=== PATIENT | female | born 1940 | race Caucasian/White ===

== ENCOUNTER 2016-08-29 14:03 | Emergency (ER) | payer OTHER ==
--- NOTE | 2016-08-29 14:42 | PDOC ---
History of Present Illness - General History Source: Patient Exam Limitations: No Limitations - History of Present Illness Initial Comments: 08/29/16 15:15 The patient is a 76 year old female, with significant past medical history of HTN, HLD, TIA (over 6 years ago), who presents today complaining of dizziness starting this morning. The patient explains that she was in the kitchen when there was a sudden onset an anxious, slightly dizzy feeling. She felt as though she was going to collapse. She thought she might have been dehydrated or hungry so she was sure to drink liquids and ate a sandwich after this feeling. She took her blood pressure right after this episode which was 188/90 at the time. She called her son and he took her to the ER. She states that she is still feeling funny. She notes that she drank 2 cups of coffee this morning, but this is not unusual for her. She reports no pain. Denies pain. Denies fever, chills, nausea, vomiting. Denies chest pain, SOB. Denies headache, lightheadedness, changes in vision Denies abdominal pain. Allergies: none reported Surgical Hx: paraesophageal hiatal hernia repair (03/2016), total knee replacement (4 years ago) PCP- Dr. Keven Veronica <Kesha Queen - Last Filed: 08/29/16 15:32> <Hi Burkett - Last Filed: 08/29/16 17:15> - General Chief Complaint: Lightheaded Stated Complaint: WEAKNESS,DIZZINESS Time Seen by Provider: 08/29/16 14:37 Past History <Kesha Queen - Last Filed: 08/29/16 15:32> <Hi Burkett - Last Filed: 08/29/16 17:15> - Past Medical History Allergies/Adverse Reactions: Allergies Allergy/AdvReac Type Severity Reaction Status Date / Time No Known Allergies Allergy Verified 08/29/16 14:50 Home Medications: Ambulatory Orders Atorvastatin Ca [Lipitor] 20 mg PO HS 08/29/16 Lisinopril/Hydrochlorothiazide [Lisinopril-Hctz 20-12.5 mg Tab] 1 each PO DAILY 08/29/16 Review of Systems - Review of Systems Able to Perform ROS?: Yes Comments:: 08/29/16 15:16 GENERAL/CONSTITUTIONAL: No fever or chills. No weakness. HEAD, EYES, EARS, NOSE AND THROAT: No change in vision. No ear pain or discharge. No sore throat. CARDIOVASCULAR: No chest pain or shortness of breath. RESPIRATORY: No cough, wheezing, or hemoptysis. GASTROINTESTINAL: No nausea, vomiting, diarrhea or constipation. GENITOURINARY: No dysuria, frequency, or change in urination. MUSCULOSKELETAL: No joint or muscle swelling or pain. No neck or back pain. SKIN: No rash NEUROLOGIC: +dizziness. No headache, vertigo, loss of consciousness, or change in strength/sensation. ENDOCRINE: No increased thirst. No abnormal weight change. HEMATOLOGIC/LYMPHATIC: No anemia, easy bleeding, or history of blood clots. ALLERGIC/IMMUNOLOGIC: No hives or skin allergy. <Kesha Queen - Last Filed: 08/29/16 15:32> *Physical Exam - Vital Signs Last Vital Signs Temp Pulse Resp BP Pulse Ox 97.9 F 87 17 179/88 99 08/29/16 14:05 08/29/16 14:05 08/29/16 14:05 08/29/16 14:05 08/29/16 14:05 - Physical Exam Comments: 08/29/16 15:16 GENERAL: Awake, alert, and fully oriented, in no acute distress HEAD: No signs of trauma EYES: PERRLA, EOMI, sclera anicteric, conjunctiva clear ENT: Auricles normal inspection, hearing grossly normal, nares patent, oropharynx clear without exudates. Moist mucosa NECK: Normal ROM, supple, no lymphadenopathy, JVD, or masses LUNGS: Breath sounds equal, clear to auscultation bilaterally. No wheezes, and no crackles HEART: Regular rate and rhythm, normal S1 and S2, no murmurs, rubs or gallops ABDOMEN: Soft, nontender, normoactive bowel sounds. No guarding, no rebound. No masses EXTREMITIES: Normal range of motion, no edema. No clubbing or cyanosis. No cords, erythema, or tenderness NEUROLOGICAL: Cranial nerves II through XII grossly intact. Normal speech, normal gait SKIN: Warm, Dry, normal turgor, no rashes or lesions noted. <Kesha Queen - Last Filed: 08/29/16 15:32> ED Treatment Course - LABORATORY CBC & Chemistry Diagram: 08/29/16 14:10 08/29/16 14:10 - RADIOLOGY Radiograph Interpretation: 08/29/16 15:20 Chest Xray As reported by Dr. Vamshi Field Impression: No acute pathology. 08/29/16 15:[address] without contrast As reported by Dr. Panfilo Gray Impression: No evidence of acute intracranial hemorrhage, edema, midline shift, mass effect, or skull fracture. No CT evidence of acute territorial infarction. Supratentorial chronic white matter microangiopathic ischemic changes, gliosis. <Kesha Queen - Last Filed: 08/29/16 15:32> - LABORATORY CBC & Chemistry Diagram: 08/29/16 14:10 08/29/16 14:10 <Hi Burkett - Last Filed: 08/29/16 17:15> *DC/Admit/Observation/Transfer - Attestations Scribe Attestion: 08/29/16 15:17 Documentation prepared by ROMANA Thompson, acting as medical pathology teacher for Hi Burkett DO. <Kesha Queen - Last Filed: 08/29/16 15:32> - Attestations Physician Attestion: 08/29/16 14:37 I, Dr. Hi Burkett, attest that this document has been prepared under my direction and personally reviewed by me in its entirety. I further attest, that it accurately reflects all work, treatment, procedures and medical decision -making performed by me. <Hi Burkett - Last Filed: 08/29/16 17:15> Diagnosis at time of Disposition: Lightheadedness, Anxiety about health - Discharge Dispostion Disposition: HOME Condition at time of disposition: Improved - Referrals Referrals: Keven Veronica MD [Primary Care Provider] - - Patient Instructions Printed Discharge Instructions: DI for Dizziness-Nonvertigo Additional Instructions: Mrs Condon- I am so sorry that I can not figure out exactly what could be happening to you. Every illness has a beginning, a middle and an end, and we may just be too early for us to find a diagnosis. Stay with your family or have your family stay with you tonight. See your doctor tomorrow. Do not hesitate to return to us should the feeling become worse or you develop any new symptoms. [place]- Dr. Hi Burkett
[2016-08-29 15:01] VITALS: BMI 34.3
[2016-08-29 15:15] LABS: BASOPHIL 0.7 % (0-2.0); EOSINOPHIL 1.1 % (0-4.5); MCH 27.3 pg (25.7-33.7); MEAN CELL VOLUME 82.6 fl (80-96); MEAN PLT VOLUME 8.6 fl (7.5-11.1); NEUTROPHILS 69.2 % (42.8-82.8); PLATELET COUNT 167 K/MM3 (134-434); RDW 13.7 % (11.6-15.6); WHITE BLOOD COUNT 6.3 K/mm3 (4.0-10.0)
[2016-08-29 15:32] LABS: INR 0.99 (0.82-1.09); PROTHROMBIN TIME (PATIENT) 10.9 SEC (9.98-11.88)
[2016-08-29 15:37] LABS: ALBUMIN 3.8 g/dl (3.4-5.0); ANION GAP 13 (8-16); BILIRUBIN,TOTAL 0.3 mg/dL (0.2-1.0); CALCIUM 9.3 mg/dL (8.5-10.1); CO2 29 mmol/L (21-32); COCKROFT - GAULT 73.7715; CREATININE 0.9 mg/dL (0.55-1.02); GLUCOSE,RANDOM 172 mg/dL (74-106); SGOT/AST 23 U/L (15-37); SGPT/ALT 40 U/L (12-78); TOT PROT 6.8 g/dl (6.4-8.2)
[2016-08-29 15:40] LABS: ALK PHOS 89 U/L (45-117); TROPONIN I < 0.02 ng/ml (0.00-0.05)
--- NOTE | 2016-08-29 15:49 | EKG ---
Test Reason : Blood Pressure : / mmHG Vent. Rate : 082 BPM Atrial Rate : 082 BPM P-R Int : 174 ms QRS Dur : 092 ms QT Int : 372 ms P-R-T Axes : 029 -16 032 degrees QTc Int : 434 ms NORMAL SINUS RHYTHM NORMAL ECG WHEN COMPARED WITH ECG OF 27-MAR-1999 20:32, NO SIGNIFICANT CHANGE WAS FOUND Confirmed by TONEY TORIBIO MD ([id number]) on 08/29/2016 3:48:56 PM Referred By: Confirmed By:TONEY TORIBIO MD
[2016-08-29 17:45] VITALS: BP 164/84; PULSE 74; TEMP 98.1
== END 2016-08-29 17:45 | disposition home or self-care (01) ==
LOC: JER 14:03
DX: R42 Dizziness and giddiness (principal); F06.4 Anxiety disorder due to known physiological condition; I10 Essential (primary) hypertension; E78.00 Pure hypercholesterolemia, unspecified; Z86.73 Personal history of transient ischemic attack (TIA), and cerebral infarction without residual deficits
CPT/HCPCS: 36415; 70450-TC; 71010-TC; 80053; 82550; 83880; 84484; 85025; 85610; 86850; 86900; 86901; 93005; 93010; 99283-25

== ENCOUNTER 2017-01-13 16:34 | Emergency (ER) | payer OTHER ==
--- NOTE | 2017-01-13 16:39 | PDOC ---
History of Present Illness <Mary Morales - Last Filed: 01/13/17 18:08> - General History Source: Patient, Old Records Exam Limitations: No Limitations - History of Present Illness Initial Comments: 01/13/17 16:52 The patient is a 76 year old female, with significant past medical history of HTN, HLD, TIA (over 6 years ago), who presents to the emergency department with right fifth digit pain and edema today. The patient states that she was walking when she tripped, fell forward and jammed her finger in a doorway. The patient states that she heard something crack and was seeing stars briefly after hitting her hand. She reports difficulty flexing and extending her right fifth digit. She reports using ice at home to alleviate pain with minimal relief. She denies taking any pain medication prior to presenting. <Salinas Rodriguez - Last Filed: 01/13/17 18:17> - General Chief Complaint: Injury Stated Complaint: RIGHT HAND INJURY Time Seen by Provider: 01/13/17 16:35 Past History - Past Medical History HTN: Yes Hypercholesterolemia: Yes - Suicide/Smoking/Psychosocial Hx Smoking History: Never smoked Have you smoked in the past 12 months: No Hx Alcohol Use: No Drug/Substance Use Hx: No Substance Use Type: None <Mary Morales - Last Filed: 01/13/17 18:08> <Salinas Rodriguez - Last Filed: 01/13/17 18:17> - Past Medical History Allergies/Adverse Reactions: Allergies Allergy/AdvReac Type Severity Reaction Status Date / Time No Known Allergies Allergy Verified 01/13/17 16:36 Home Medications: Ambulatory Orders Atorvastatin Ca [Lipitor] 20 mg PO HS 08/29/16 Lisinopril/Hydrochlorothiazide [Lisinopril-Hctz 20-12.5 mg Tab] 1 each PO DAILY 08/29/16 Review of Systems - Review of Systems Able to Perform ROS?: Yes Comments:: 01/13/17 16:52 GENERAL/CONSTITUTIONAL: No fever or chills. No weakness. HEAD, EYES, EARS, NOSE AND THROAT: No change in vision. No ear pain or discharge. No sore throat. MUSCULOSKELETAL: (+) Right fifth digit edema and pain. No neck or back pain. SKIN: No rash <Salinas Rodriguez - Last Filed: 01/13/17 18:17> *Physical Exam - Physical Exam Comments: GENERAL: Awake, alert, and fully oriented, in no acute distress EXTREMITIES: R hand with small ecchymosis to 5th digit, PIP joint, dorsal surface. Finger is held in slight flexion. +Tenderness to 5th metacarpal. Remainder of extremities with normal range of motion, no edema. No clubbing or cyanosis. No cords, erythema, or tenderness NEUROLOGICAL: Cranial nerves II through XII grossly intact. Normal speech, normal gait. Motor and sensation intact. SKIN: Warm, Dry, normal turgor, no rashes or lesions noted. <Mary Morales - Last Filed: 01/13/17 18:08> - Vital Signs Last Vital Signs Temp Pulse Resp BP Pulse Ox 97.6 F 75 18 177/79 100 01/13/17 16:35 01/13/17 16:35 01/13/17 16:35 01/13/17 16:35 01/13/17 16:35 <Salinas Rodriguez - Last Filed: 01/13/17 18:17> Procedures - Splinting Splint Location: Right: Hand Pre-Proc Neuro Vasc Exam: normal Hand-Made Type: orthoglass Splint Type: Yes: Ulnar (ulnar gutter splint) Post-Proc Neuro Vasc Exam: normal Alfredo Bandage: yes, 2", 4" Sling: Yes Complications: No Post splint xray: Yes Good repositioning: Yes Progress: 01/13/17 17:48 Sterile skin prep with chloraprep. Hematoma block given with 2mL of 2% lidocaine , no epi. At this time the patient reported relief of pain and I was able to palpate the fracture without causing her pain. I held the proximal portion of the metacarpal in place while directing the distal fragment dorsally, feeling it move into place. Splinted in place. Patient tolerated well. <Mary Morales - Last Filed: 01/13/17 18:08> Medical Decision Making - Medical Decision Making 01/13/17 16:57 Pt declined pain meds. <Mary Morales - Last Filed: 01/13/17 18:08> - Medical Decision Making 01/13/17 17:[address] Chaves placed [phone]. Awaiting call back. <Salinas Rodriguez - Last Filed: 01/13/17 18:17> *DC/Admit/Observation/Transfer - Discharge Dispostion Admit: No <Mary Morales - Last Filed: 01/13/17 18:08> <Salinas Rodriguez - Last Filed: 01/13/17 18:17> Diagnosis at time of Disposition: Boxers fracture Qualifiers: Encounter type: initial encounter Fracture type: closed Qualified Code(s): S62.339A - Displaced fracture of neck of unspecified metacarpal bone, initial encounter for closed fracture - Discharge Dispostion Disposition: HOME Condition at time of disposition: Stable - Referrals Referrals: Roberto Gómez MD [Staff Physician] - - Patient Instructions Printed Discharge Instructions: DI for Boxer's Fracture, How to Take Care of Your Splint
[2017-01-13 16:57] VITALS: BP 177/79; PULSE 75; TEMP 97.6; BMI 34.3
[2017-01-13] MEDS ORDERED: LIDOCAINE HCL 2% (20ML MULTI-DOSE VIAL) NR ONE (17:30)
== END 2017-01-13 18:13 | disposition home or self-care (01) ==
LOC: FER 16:34
PROC: 0PSPXZZ Reposition Right Metacarpal, External Approach (ICD-10-PCS; principal; 2017-01-13)
DX: S62.306A Unspecified fracture of fifth metacarpal bone, right hand, initial encounter for closed fracture (principal); W18.30XA Fall on same level, unspecified, initial encounter; Y93.89 Activity, other specified; Y92.9 Unspecified place or not applicable; I10 Essential (primary) hypertension; E78.00 Pure hypercholesterolemia, unspecified; Z86.73 Personal history of transient ischemic attack (TIA), and cerebral infarction without residual deficits
CPT/HCPCS: 26605; 73130-TC-RT; 99283-25

== ENCOUNTER 2019-03-14 13:49 | Inpatient (IN) | payer OTHER ==
[2019-03-14] MEDS ORDERED: ONDANSETRON 4 MG/2 ML VIAL ONE (14:19)
[2019-03-14] MEDS ORDERED: ACETAMINOPHEN 1000 MG/100 ML VIAL (NON FORMULARY) IVPB ONE (14:20)
[2019-03-14 14:25] LABS: BASO % 0.7 % (0-2.0); EOS % 0.8 % (0-4.5); HEMATOCRIT 42.7 % (32.4-45.2); HEMOGLOBIN 14.1 GM/dL (10.7-15.3); LYMPH % 24.4 % (8-40); MCH 27.5 pg (25.7-33.7); MEAN CELL VOLUME 83.3 fl (80-96); MEAN PLT VOLUME 8.6 fl (7.5-11.1); MONO % 7.8 % (3.8-10.2); NEUT % 66.3 % (42.8-82.8); PLATELET COUNT 215 K/MM3 (134-434); RBC 5.12 M/mm3 (3.60-5.2); RDW 14.1 % (11.6-15.6); WHITE BLOOD COUNT 6.9 K/mm3 (4.0-10.0)
[2019-03-14] MEDS: SODIUM CHLORIDE 1,000 ML IV SCH (14:32)
[2019-03-14] MEDS ORDERED: ACETAMINOPHEN INJECTION 100 ML IVPB ONE (14:34)
--- NOTE | 2019-03-14 14:35 | PDOC ---
History of Present Illness - General Chief Complaint: Blood Pressure Problem Stated Complaint: HEADACHE/DIFFICULTY SPEAKING Time Seen by Provider: 03/14/19 14:00 - History of Present Illness Initial Comments: Suasn Condon is an 78yo woman with a PMH of HTN, HLD, NIDDM, hypothyroid who presents with acute onset of difficulty speaking, now resolved, hypertension, and headache. She reports that she was in the car with friends around noon, and she started saying the wrong words. She reports that whatever she tried to say, different words came out. She was almost home at that time, so she went home and called her son to bring her to the hospital. Ms Condon reports that the incident saying wrong words lasted about 10-15 minutes, but she has continued to have difficulty coming up with words. She denies any focal weakness, numbness , slurred speech, facial droop, or difficulty walking. She checked her BP at home and noted that it was higher than normal; she says it was in the 160's initially. On arrival to the ED, her HTN had increased to over 200 systolic. She denies any chest pain or difficulty breathing but does note a left-sided headache currently. NIH Stroke Scale - Last Known Well Date/Time & Onset Date Last Known Well: 03/14/19 Time Last Known Well: 12:00 - Initial Evaluation Level of consciousness: Alert Ask patient the month and their age: Answers both correctly Ask patient to open & close eyes; make fist and let go: Obeys both correctly Best gaze (horizontal eye movement): Normal Visual field testing: No visual field loss Facial paresis (Show teeth/raise eyebrows/close eyes tight): Normal symmetrical movement Motor Function: Left Arm: Normal Motor Function: Right Arm: Normal (extends arm 90 (or 45) degrees for 10 seconds without drift Motor Function: Left Leg: Normal (extends leg 30 degrees for 5 seconds without drift) Motor Function: Right Leg: Normal (extends leg 30 degrees for 5 seconds without drift) Limb Ataxia: No ataxia Sensory(Use pinprick test arms,legs,trunk,face/side to side): Normal Best language (Describe picture, name items, read sentences): No Aphasia Dysarthria (read several words): Normal articulation Extinction and Inattention: No abnormality - Total Score NIH Stroke Scale Score: 0 Past History - Past Medical History Allergies/Adverse Reactions: Allergies Allergy/AdvReac Type Severity Reaction Status Date / Time No Known Allergies Allergy Verified 03/14/19 13:55 Home Medications: Ambulatory Orders Atorvastatin Ca [Lipitor] 20 mg PO HS 08/29/16 Aspirin [ASA -] 325 mg PO DAILY 03/14/19 Levothyroxine [Synthroid -] 25 mcg PO DAILY 03/14/19 Lisinopril/Hydrochlorothiazide [Lisinopril-Hctz 20-25 mg Tab] 1 each PO DAILY Multivitamins [Tab-A-Vit -] 1 tab PO DAILY 03/14/19 [place]-3S/Dha/Epa/Fish Oil [Fish Oil 1,200 mg Softgel] 1 each PO DAILY 03/14/19 metFORMIN HCL [Metformin HCl ER] 750 mg PO DAILY 03/14/19 COPD: No Diabetes: Yes HTN: Yes Hypercholesterolemia: Yes - Surgical History Abdominal Surgery: Yes (HIATAL HERNIA REPAIR IN 2014) - Psycho Social/Smoking Cessation Hx Smoking History: Never smoked Have you smoked in the past 12 months: No Hx Alcohol Use: No Drug/Substance Use Hx: No Substance Use Type: None Review of Systems - Review of Systems Comments:: General: No fevers, no chills, no weight or appetite change, no malaise HEENT: No changes in vision, no changes in hearing, no congestion, no sore throat CV: No chest pain, no palpitations, no LE edema Pulm: No SOB, no cough, no wheezing GI: No nausea or vomiting, no change in bowel habits, no melena : No frequency, no urgency, no dysuria Musc: No back pain, no joint swelling, no recent injury Skin: No rash, no lesions, no erythema Endo: No excessive thirst, no heat/cold intolerance Heme: No unusual bruising or bleeding, no swollen glands Neuro: No syncope, no numbness/tingling, no focal weakness. See HPI Vasc: No claudication Psych: No recent change in mood, no SI or HI *Physical Exam - Vital Signs Last Vital Signs Temp Pulse Resp BP Pulse Ox 98 F 90 18 202/91 H 97 03/14/19 13:52 03/14/19 13:52 03/14/19 13:52 03/14/19 13:52 03/14/19 13:52 - Physical Exam General: Comfortable, no acute distress HEENT: Atraumatic, PERRL, EOMI, MMM, voice normal, normal neck ROM Cards: RRR, no murmur appreciated Pulm: Comfortable on room air, clear to auscultation bilaterally Abd: Soft, nontender, nondistended Ext: Atraumatic. No LE edema. ROM intact. WWP Skin: Normal color, no rashes or lesions Neuro: A&Ox3, CN grossly intact, normal speech, motor/sensory grossly intact and symmetric. No focal deficits, no ataxia. Psych: Mood appropriate to situation ED Treatment Course - LABORATORY CBC & Chemistry Diagram: 03/14/19 14:05 03/14/19 14:05 - ADDITIONAL ORDERS Additional order review: Laboratory Results 03/14/19 14:27 POC Glucometer 134 03/14/19 03/14/19 14:27 14:05 RBC 5.12 MCV 83.3 MCHC 33.0 RDW 14.1 MPV 8.6 Neutrophils % 66.3 Lymphocytes % 24.4 Monocytes % 7.8 Eosinophils % 0.8 Basophils % 0.7 POC Glucometer 134 Medical Decision Making - Medical Decision Making 03/14/19 14:32 Susan Condon is an 78yo woman with a PMH of HTN, HLD, NIDDM, hypothyroid who presents with acute onset of difficulty speaking, now resolved, hypertension, and headache. - Ddx includes TIA, CVA (ischemic v hemorrhagic) vs hypertensive emergency - Code jaramillo called - Labs pending - CT completed. No acute bleed seen - Became nauseated while in CT. 4mg IV zofran given 03/14/19 15:14 - Spoke to Dr Lazo. Recommending carotid duplex, cardiac monitoring to evaluate for arrhythmia - Labs without concerning abnormalities - Will admit for additional evaluation 03/14/19 15:22 - Updated pt, who agrees with the plan. - Pt reports that she had a very similar episode over 10 years ago, was told she might have had a TIA - [facility] sent for admission Discussed with Dr Angie Sandra PGY2 Discharge - Discharge Information Problems reviewed: Yes Clinical Impression/Diagnosis: TIA (transient ischemic attack) Condition: Stable - Admission Yes - Follow up/Referral - Patient Discharge Instructions - Post Discharge Activity
[2019-03-14 14:58] LABS: INR 0.96 (0.83-1.09); PROTHROMBIN TIME (PATIENT) 11.3 SEC (9.7-13.0)
--- NOTE | 2019-03-14 14:58 | PDOC ---
Attending Attestation - Resident Resident Name: Elizabeth Sandra - ED Attending Attestation I have performed the following: I have examined & evaluated the patient, The case was reviewed & discussed with the resident, I agree w/resident's findings & plan, Exceptions are as noted - HPI HPI: 03/14/19 14:52 78 F with DM, HTN, HLD, hypothyroid, ?TIA, presents to ED with acute onset slurred speech and word finding difficulty. Pt states that she was talking on the phone at approximately 12:30 when she started having difficulty speaking. She states that she was saying words that didn't make sense. Pt denies any weakness/numbness in any extremity. States that the word finding difficulty lasted approx 1 hour before resolving on its own. Pt now complains of mild headache and nausea. Denies CP/SOB. Pt's daugher at bedside states pt has returned to her baseline mentation. - Physicial Exam PE: 03/14/19 14:58 "GENERAL: Awake, alert, and fully oriented, in no acute distress. HEAD: No signs of trauma EYES: PERRLA, EOMI, sclera anicteric, conjunctiva clear ENT: Auricles normal inspection, hearing grossly normal, nares patent, oropharynx clear without exudates. Moist mucosa NECK: Nontender, no stepoffs, Normal ROM, supple, no lymphadenopathy, JVD, or masses LUNGS: Breath sounds equal, clear to auscultation bilaterally. No wheezes, and no crackles HEART: Regular rate and rhythm, normal S1 and S2, no murmurs, rubs or gallops ABDOMEN: Soft, nontender, normoactive bowel sounds. No guarding, no rebound. No masses EXTREMITIES: Normal range of motion, no edema. No clubbing or cyanosis. No cords, erythema, or tenderness NEUROLOGICAL: Cranial nerves II through XII intact. 5/5 strength and sensation in all extremities, Normal speech, normal gait, normal cerebellar function SKIN: Warm, Dry, normal turgor, no rashes or lesions noted. - Critical Care Time Total Critical Care Time: 60 Critical Care Statement: The care of this patient involved high complexity decision making to prevent further life threatening deterioration of the patient 's condition and/or to evaluate & treat vital organ system(s) failure or risk of failure. - Medical Decision Making 03/14/19 15:00 78 F with transient episode of word finding difficulty. Now back to baseline. Possible TIA. NIHSS zero. - Labs - CT head - Neuro c/s NIH Stroke Scale - Last Known Well Date/Time & Onset Date Last Known Well: 03/14/19 Time Last Known Well: 12:30 - Initial Evaluation Level of consciousness: Alert Ask patient the month and their age: Answers both correctly Ask patient to open & close eyes; make fist and let go: Obeys both correctly Best gaze (horizontal eye movement): Normal Visual field testing: No visual field loss Facial paresis (Show teeth/raise eyebrows/close eyes tight): Normal symmetrical movement Motor Function: Left Arm: Normal Motor Function: Right Arm: Normal (extends arm 90 (or 45) degrees for 10 seconds without drift Motor Function: Left Leg: Normal (extends leg 30 degrees for 5 seconds without drift) Motor Function: Right Leg: Normal (extends leg 30 degrees for 5 seconds without drift) Limb Ataxia: No ataxia Sensory(Use pinprick test arms,legs,trunk,face/side to side): Normal Best language (Describe picture, name items, read sentences): No Aphasia Dysarthria (read several words): Normal articulation Extinction and Inattention: No abnormality - Total Score NIH Stroke Scale Score: 0
[2019-03-14 15:01] LABS: ACTIVATED PTT 34.8 SECONDS (25.2-36.5)
[2019-03-14 15:03] LABS: ALK PHOS 93 U/L (45-117); ANION GAP 12 MMOL/L (8-16); BILIRUBIN,TOTAL 0.5 mg/dL (0.2-1); BLOOD UREA NITROGEN 14.6 mg/dL (7-18); CALCIUM 9.8 mg/dL (8.5-10.1); CHLORIDE 99 mmol/L (98-107); CO2 26 mmol/L (21-32); CREATININE 0.8 mg/dL (0.55-1.3); GLUCOSE,RANDOM 107 mg/dL (74-106); HDL CHOLESTEROL 46 mg/dL (40-60); LDL CHOLESTEROL (ONLY SJRH) 85 mg/dL (5-100); POTASSIUM 4.2 mmol/L (3.5-5.1); SGOT/AST 30 U/L (15-37); SGPT/ALT 58 U/L (13-61); SODIUM 136 mmol/L (136-145); TOT PROT 7.2 g/dl (6.4-8.2); TRIGLYCERIDES 143 mg/dL (0-150)
--- NOTE | 2019-03-14 17:24 | HP ---
CHIEF COMPLAINT: change of speech, mild headache PCP: Dr. Arrington HISTORY OF PRESENT ILLNESS: Patient is an 78 year old female with a significant past medical history of hypertension, hyperlipidemia, hypothyroidism and diabetes. Patient presented to the ED after she experienced an acute onset of difficulty speaking, hypertension and headache. Symptoms have since resolved. Patient report that today around noon, was in car with some friends and she noted that she was trying to speak but had an acute onset of difficult speaking. She reports that whatever she tried to say, the words came out differently and she felt as though her speech may have been slurred, but does not remember. She called her family and reported this incident and was brought in to [facility]. In the ED, stroke protocol initiated and head CT negative. However BP was elevated 200/90s on admission She denies any focal weakness, numbness, facial droop, or difficulty walking. She checked her BP at home and noted that it was higher than normal. States it was in the 160's initially, but elevated on admission. She denies any chest pain or difficulty breathing but does note a left-sided headache currently that is mild. ER course was notable for: (1) bp elevation 200/60 (2) head ct , no acute bleed (3) Recent Travel: none PAST MEDICAL HISTORY: PAST SURGICAL HISTORY: Social History: Smoking: n/a Alcohol: n/a Drugs: n/a Allergies No Known Allergies Allergy (Verified 03/14/19 13:55) HOME MEDICATIONS: Home Medications Medication Instructions Recorded Atorvastatin Ca [Lipitor] 20 mg PO HS 08/29/16 Aspirin [ASA -] 325 mg PO DAILY 03/14/19 Levothyroxine [Synthroid -] 25 mcg PO DAILY 03/14/19 Lisinopril/Hydrochlorothiazide 1 each PO DAILY 03/14/19 [Lisinopril-Hctz 20-25 mg Tab] Multivitamins [Tab-A-Vit -] 1 tab PO DAILY 03/14/19 [place]-3S/Dha/Epa/Fish Oil [Fish 1 each PO DAILY 03/14/19 Oil 1,200 mg Softgel] metFORMIN HCL [Metformin HCl ER] 750 mg PO DAILY 03/14/19 PHYSICAL EXAMINATION Vital Signs - 24 hr 03/14/19 03/14/19 03/14/19 13:52 13:55 14:15 Temperature 98 F Pulse Rate 90 78 Pulse Rate [ Apical] Respiratory 18 Rate Blood Pressure 202/91 H Blood Pressure [Right Arm] O2 Sat by Pulse 97 97 99 Oximetry (%) 03/14/19 03/14/19 03/14/19 14:25 14:57 17:00 Temperature 97.9 F Pulse Rate Pulse Rate [ 68 74 Apical] Respiratory 18 22 H Rate Blood Pressure Blood Pressure 166/90 131/67 125/59 L [Right Arm] O2 Sat by Pulse 97 96 Oximetry (%) GENERAL: Awake, alert, and fully oriented, in no acute distress. HEAD: Normal with no signs of trauma. EYES: Pupils equal, round and reactive to light, extraocular movements intact, sclera anicteric, conjunctiva clear. No lid lag. EARS, NOSE, THROAT: Ears normal, nares patent, oropharynx clear without exudates. Moist mucous membranes. NECK: Normal range of motion, supple without lymphadenopathy, JVD, or masses. LUNGS: Breath sounds equal, clear to auscultation bilaterally. No wheezes, and no crackles. No accessory muscle use. HEART: Regular rate and rhythm, normal S1 and S2 without murmur, rub or gallop. ABDOMEN: Soft, nontender, not distended, normoactive bowel sounds, no guarding, no rebound, no masses. No hepatomegaly or splenomegaly. MUSCULOSKELETAL: No CVA tenderness. UPPER EXTREMITIES: No peripheral edema. LOWER EXTREMITIES: No peripheral edema. NEUROLOGICAL: Normal speech. Normal gait. PSYCHIATRIC: Cooperative. Good eye contact. Appropriate mood and affect. SKIN: Warm, dry, normal turgor, no rashes or lesions noted, normal capillary refill. Laboratory Results - last 24 hr 03/14/19 03/14/19 03/14/19 14:05 14:05 14:05 WBC 6.9 RBC 5.12 Hgb 14.1 Hct 42.7 MCV 83.3 MCH 27.5 MCHC 33.0 RDW 14.1 Plt Count 215 D MPV 8.6 Absolute Neuts (auto) 4.6 Neutrophils % 66.3 Lymphocytes % 24.4 Monocytes % 7.8 Eosinophils % 0.8 Basophils % 0.7 Nucleated RBC % 0 PT with INR 11.30 INR 0.96 PTT (Actin FS) 34.8 Sodium 136 Potassium 4.2 Chloride 99 Carbon Dioxide 26 Anion Gap 12 BUN 14.6 Creatinine 0.8 Est GFR (CKD-EPI)AfAm 80.70 Est GFR (CKD-EPI)NonAf 69.63 POC Glucometer Random Glucose 107 H Calcium 9.8 Total Bilirubin 0.5 AST 30 ALT 58 Alkaline Phosphatase 93 Creatine Kinase 110 Troponin I < 0.02 Total Protein 7.2 Albumin 4.0 Triglycerides 143 Cholesterol Total LDL Cholesterol 85 HDL Cholesterol 46 03/14/19 03/14/19 14:05 14:27 WBC RBC Hgb Hct MCV MCH MCHC RDW Plt Count MPV Absolute Neuts (auto) Neutrophils % Lymphocytes % Monocytes % Eosinophils % Basophils % Nucleated RBC % PT with INR INR PTT (Actin FS) Sodium Potassium Chloride Carbon Dioxide Anion Gap BUN Creatinine Est GFR (CKD-EPI)AfAm Est GFR (CKD-EPI)NonAf POC Glucometer 134 Random Glucose Calcium Total Bilirubin AST ALT Alkaline Phosphatase Creatine Kinase Troponin I Total Protein Albumin Triglycerides Cholesterol 162 Total LDL Cholesterol HDL Cholesterol ASSESSMENT/PLAN: Family Medical History Family History: Denies Problem List - Problem (1) TIA (transient ischemic attack) Assessment/Plan: presents to the the ED with concerning symptoms of TIA per patient had a previous TIA and put on full dose aspirin head ct negative no further headaches, speech clear, neuro exam negative, no visual defects plan: neurology consulted by the ED monitor on tele carotid doppler hmga1c lipid panel Code(s): G45.9 - TRANSIENT CEREBRAL ISCHEMIC ATTACK, UNSPECIFIED (2) Headache Assessment/Plan: head ct negative Code(s): R51 - HEADACHE (3) Hyperlipidemia Assessment/Plan: lipid panel in a.m. Code(s): E78.5 - HYPERLIPIDEMIA, UNSPECIFIED (4) Diabetes Assessment/Plan: on metformin 750mg daily hmga1c in a.m. monitor bgms Code(s): E11.9 - TYPE 2 DIABETES MELLITUS WITHOUT COMPLICATIONS (5) Hypertension Assessment/Plan: continue home meds, lisonopril/hctc bp elevated on admission monitor bp q4 Code(s): I10 - ESSENTIAL (PRIMARY) HYPERTENSION Visit type - Emergency Visit Emergency Visit: Yes ED Registration Date: 03/14/19 Care time: The patient presented to the Emergency Department on the above date and was hospitalized for further evaluation of their emergent condition. - New Patient This patient is new to me today: Yes Date on this admission: 03/14/19 - Critical Care Critical Care patient: No
[2019-03-14 20:00] LABS: EPI CELLS 3.9 /HPF (0-5/HPF); HYALINE CASTS 3 /lpf (0-8); PH,URINE 6.5 (5.0-8.0); URINE APPEARANCE CLEAR; URINE BACTERIA 102.4 /hpf (NEGATIVE); URINE BILIRUBIN NEGATIVE (NEGATIVE); URINE COLOR YELLOW; URINE GLUCOSE (UA) NEGATIVE (NEGATIVE); URINE KETONE 2+ (NEGATIVE); URINE LEUK ESTERASE TRACE (NEGATIVE); URINE NITRITE NEGATIVE (NEGATIVE); URINE PROTEIN NEGATIVE (NEGATIVE); URINE RBC 2 /hpf (0-4); URINE UROBILINOGEN 0.2 mg/dL (0.2-1.0); URINE WBC 4 /hpf (0-5)
[2019-03-14] MEDS ORDERED: ACETAMINOPHEN 325 MG TABLET (FP) PO PRN (21:21)
[2019-03-14] MEDS: ATORVASTATIN CA 20 MG TABLET (FP) PO SCH (22:34)
[2019-03-15] MEDS ORDERED: LEVOTHYROXINE NA 25 MCG TABLET (FP) PO SCH (07:00)
[2019-03-15 08:06] LABS: BASO % 0.7 % (0-2.0); EOS % 1.6 % (0-4.5); HEMATOCRIT 40.7 % (32.4-45.2); HEMOGLOBIN 13.6 GM/dL (10.7-15.3); LYMPH % 34.6 % (8-40); MCH 27.7 pg (25.7-33.7); MCHC 33.4 g/dl (32.0-36.0); MEAN CELL VOLUME 82.9 fl (80-96); MEAN PLT VOLUME 8.9 fl (7.5-11.1); MONO % 10.5 % (3.8-10.2); NEUT % 52.6 % (42.8-82.8); PLATELET COUNT 215 K/MM3 (134-434); RBC 4.91 M/mm3 (3.60-5.2); RDW 14.1 % (11.6-15.6); WHITE BLOOD COUNT 6.3 K/mm3 (4.0-10.0)
[2019-03-15 08:28] LABS: ALBUMIN 3.7 g/dl (3.4-5.0); BILIRUBIN,TOTAL 0.4 mg/dL (0.2-1); BLOOD UREA NITROGEN 12.3 mg/dL (7-18); CALCIUM 9.4 mg/dL (8.5-10.1); CREATININE 0.8 mg/dL (0.55-1.3); POTASSIUM 4.4 mmol/L (3.5-5.1); TOT PROT 6.5 g/dl (6.4-8.2)
[2019-03-15] MEDS ORDERED: PATIENT'S OWN MEDICATION (NON-FORMULARY) (Lisinopril/Hydrochlorothiazide [Lisinopril-Hctz PO SCH (10:00)
[2019-03-15] MEDS ORDERED: HYDROCHLOROTHIAZIDE 25 MG TABLET (FP) PO SCH (10:00)
[2019-03-15] MEDS ORDERED: LISINOPRIL 20 MG TABLET (FP) PO SCH (10:00)
[2019-03-15] MEDS ORDERED: ASPIRIN 325 MG TABLET PO SCH (10:00)
--- NOTE | 2019-03-15 14:34 | PN ---
Progress Note, Physician Chief Complaint: pt denies any c/o , and no more symptoms of the slurring of speech , no weakness , - Current Medication List Current Medications: Active Medications Acetaminophen (Tylenol -) 650 mg PO Q6H PRN PRN Reason: PAIN LEVEL 6-10 Aspirin (Asa -) 325 mg PO DAILY [facility] Last Admin: 03/15/19 09:13 Dose: 325 mg Atorvastatin Calcium (Lipitor -) 20 mg PO HS [facility] Last Admin: 03/14/19 22:34 Dose: 20 mg Hydrochlorothiazide (Hctz -) 25 mg PO DAILY [facility] Last Admin: 03/15/19 09:13 Dose: 25 mg Sodium Chloride (Normal Saline -) 1,000 mls @ 42 mls/hr IV ASDIR [facility] Last Admin: 03/14/19 14:32 Dose: 42 mls/hr Levothyroxine Sodium (Synthroid -) 25 mcg PO AM [facility] Last Admin: 03/15/19 06:24 Dose: 25 mcg Lisinopril (Prinivil) 20 mg PO DAILY [facility] Last Admin: 03/15/19 09:13 Dose: 20 mg Metformin HCl (Glucophage Xr -) 750 mg PO AM [facility] Last Admin: 03/15/19 08:39 Dose: 750 mg - Objective Vital Signs: Vital Signs Temperature 98.0 F 03/15/19 14:23 Pulse Rate 80 03/15/19 14:23 Respiratory Rate 18 03/15/19 14:23 Blood Pressure 118/54 L 03/15/19 14:23 O2 Sat by Pulse Oximetry (%) 95 03/15/19 08:50 Constitutional: Yes: Well Nourished, Calm Eyes: Yes: Conjunctiva Clear, EOM Intact HENT: Yes: Normocephalic Neck: Yes: Supple, Trachea Midline Cardiovascular: Yes: Regular Rate and Rhythm Respiratory: Yes: Regular, CTA Bilaterally Gastrointestinal: Yes: Normal Bowel Sounds Edema: No Neurological: Yes: Alert, Oriented ...Motor Strength: WNL Psychiatric: Yes: WNL Labs: CBC, BMP 03/15/19 06:35 03/15/19 07:30 INR, PTT INR 0.96 (0.83-1.09) 03/14/19 14:05 Impression/Plan Impression/Plan: blem (1) TIA (transient ischemic attack) Assessment/Plan: symptoms of the slurring resolved, and also no new s/o weakness, is asymptomatic , neurology consulted by the ED, awaiting, and will call again, monitor on tele carotid doppler is negative, hmga1c lipid panel Code(s): G45.9 - TRANSIENT CEREBRAL ISCHEMIC ATTACK, UNSPECIFIED (2) Headache Assessment/Plan: head ct negative Code(s): R51 - HEADACHE (3) Hyperlipidemia Assessment/Plan: normal, Code(s): E78.5 - HYPERLIPIDEMIA, UNSPECIFIED (4) Diabetes Assessment/Plan: on metformin 750mg daily hmga1c 6.3, monitor bgms Code(s): E11.9 - TYPE 2 DIABETES MELLITUS WITHOUT COMPLICATIONS (5) Hypertension Assessment/Plan: continue home meds, lisonopril/hctc controlled, Code(s): I10 - ESSENTIAL (PRIMARY) HYPERTENSION Visit type - Emergency Visit Emergency Visit: No - New Patient This patient is new to me today: Yes Date on this admission: 03/15/19 - Critical Care Critical Care patient: No - Discharge Referral Referred to [facility] Med [facility].C.: No
[2019-03-15] MEDS: SODIUM CHLORIDE 1,000 ML IV SCH (16:46)
[2019-03-15] MEDS ORDERED: METOCLOPRAMIDE HCL INJECTION 10 MG/2 ML VIAL IVPUSH STA (16:54)
[2019-03-15] MEDS ORDERED: MAG HYDROX/AL HYDROX/SIMETH 30 ML UNIT-DOSE CUP PO PRN (16:55)
[2019-03-15] MEDS ORDERED: MAGNESIUM HYDROX 2400MG/30ML ORAL SUSPENSION 30 ML CUP PO ONE (16:55)
[2019-03-15] MEDS ORDERED: PANTOPRAZOLE SODIUM 40 MG VIAL IVPUSH ONE (17:05)
--- NOTE | 2019-03-15 18:24 | CONSULT ---
Consult - text type - Consultation Consultation Note: NEUROLOGY CONSULTATION is greatly appreciated: Events reviewed and discussed with Dr. Sandra in the ER and RN. patient examined with her son and daughter at the bedside. This 6o yo RH woman lives alone. Independent in all ADL's. Drives without difficulty PMH sig for HTN, Chol, hypothyroidism and DM. Maintained on: Atorvastatin; Aspirin 325; Levothyroxine; Lisinopril/ Hydrochlorothiazide; and metFORMIN HCL Admitted yesterday after 10-15 min episode of word finding difficulty without comprehension deficit or alteration in level of consciousness. No recurrence but daughter and patient recall a similar episode aboput 10-15 years ago and that evaluation for "TIA" was "negative. Ambulated to BR today without difficult. Now c/o LLQ pain and nausea wioth dry heaves since lunch. No c/o vertigo/ dizziness CT of head (reviewed): Normal Carotid duplex doppler (reviewed): Normal SHANNAN: No bruits. Cor regular (80's). Abd soft. NEURO: MS/speech: normal CN II-XII: normal without nystagmus. Motor: No drift or tremor. Normal strength, bulk, tone and reflexes. Toes downgoing Coord: No FTN Dystaxia Sensory: Normal vib both feet. Gait: Deferred due to GI complaints. IMP: Normal neurological exam R/O left cerebral TIA Suggest: Continue telemetry Continue ASA 324mg for now Cardiology consultation. Possible wechocardiogram: R/O cardiogenic source of emboli. GI consult and eval if nausea persists (Unlikely on a neurological basis). Mobilize out of bed to chair (or DVT prophylactic protocol). Thank you very much, Dick Lazo MD
[2019-03-15] MEDS ORDERED: DEXTROSE 5%-0.45% SALINE 1,000 ML IV SCH (19:30)
[2019-03-15] MEDS ORDERED: ONDANSETRON 4 MG/2 ML VIAL IVPUSH ONE ×2 (20:46→23:43)
--- NOTE | 2019-03-15 20:53 | HOSP ---
Subjective - Review of Symptoms Events since last encounter: Hospitalist Encounter Notified by the RN that the patient had a BM with anthony blood then melena. Then had a second large episode of melena. Was asked to assess. Arrived to bedside, patient is alert, awake and oriented, pale, in moderate distress. PE performed see EMR Call placed to Dr Jimenes, discussed case, recommends- CTA abdomen/pelvis, Protonix Drip Discussed case with Dr. Ely Gatica, ICU resident, for probable transfer to ICU for Acute GI Bleed Assessment: Patient is an 78 year old female with a significant past medical history of hypertension, hyperlipidemia, hypothyroidism and diabetes. Patient presented to the ED after she experienced an acute onset of difficulty speaking, hypertension and headache. Symptoms have since resolved. Admitted to Telemetry for TIA Plan: Stat-CBC, CMP, INR, PTT, Type & Screen, PRBCs Stat- CTA abd/pelvis Protonix Drip Transfer to ICU Gastrointestinal: Yes: Abdominal Pain, Melena Physical Examination Vital Signs: Vital Signs Temperature 97.2 F L 03/15/19 17:00 Pulse Rate 62 03/15/19 17:00 Respiratory Rate 20 03/15/19 17:00 Blood Pressure 167/79 03/15/19 17:00 O2 Sat by Pulse Oximetry (%) 95 03/15/19 08:50 Constitutional: Yes: Moderate Distress, Obese, Pallor Eyes: Yes: Conjunctiva Clear, EOM Intact, PERRL HENT: Yes: WNL, Atraumatic, Normocephalic Neck: Yes: WNL, Supple, Trachea Midline Cardiovascular: Yes: Regular Rate and Rhythm, S1, S2 Respiratory: Yes: WNL, Regular, CTA Bilaterally Gastrointestinal: Yes: Abdomen, Obese, Hyperactive Bowel Sounds, Melena, Rectal Bleeding, Tenderness, Tenderness, Epigastrium ...Rectal Exam: Yes: Guaiac Positive, Sphincter Tone Normal Peripheral Pulses WNL: Yes Neurological: Yes: WNL, Alert, Oriented, Cran Nerves II-XII Intact ...Motor Strength: WNL Psychiatric: Yes: WNL, Alert, Oriented Labs: CBC, BMP 03/15/19 06:35 03/15/19 07:30 Hospitalist Encounter Outcome: WBC 15.8, H/H 14.1/43.7, Neutrophils 89.9, BUN 21.6, Glu 173 CTA report- no AAA, no SBO, moderate mucousal thickening and adjacent edema of the colon mid ascending colon the distal descending colon compatible with Colitis Assessment: Colitis Plan: Metronidazole, Ceftriaxone Critical Care Total Critical Care Time (in minutes): 45 Critical Care Statement: The care of this patient involved high complexity decision making to prevent further life threatening deterioration of the patient 's condition and/or to evaluate & treat vital organ system(s) failure or risk of failure.
[2019-03-15] MEDS ORDERED: PANTOPRAZOLE SODIUM 80 MG in SODIUM CHLORIDE 100 ML IVPB SCH (21:00)
--- NOTE | 2019-03-15 21:40 | CONSULT ---
Consultation: REQUESTING PROVIDER: CONSULT REQUEST: We have been asked to medically evaluate this patient for ICU admission due to acute GI bleed. HISTORY OF PRESENT ILLNESS: 78 y/o/f with a significant past medical history of hypertension, hyperlipidemia , hypothyroidism and diabetes. Patient presented to the ED after she experienced an acute onset of difficulty speaking, hypertension and headache. Patient was worked up for TIA and symptoms have since resolved. Patient was cleared by Neurology today with a normal neurological exam. Earlier today patient started to complain of diffused abd tenderness and nausea. She was given zofran, reglan, and protonix with improvement. Patient did not have vomiting. She had a normal rectal exam without anthony blood earlier today. Later in the day patient had a BM with melena and then another BM with anthony blood. Patient had a third BM with anthony blood during interview with ICU team. Repeat CBC was ordered, hgb did not drop. Patient is hemodynamically stable, however admitted to ICU for closer monitoring due to multiple episodes of bloody bowel movements today. Patient has a history of a para-esophageal hernia repair 3 years ago. Her last colonoscopy was 10+ years ago. She denies any hx of colon cancer but states she has some family hx of colon cancer. Patient complains of dizziness, abd pain, nausea, chills. She denies chest pain, SOB, headache. REVIEW OF SYSTEMS: As per HPI PHYSICAL EXAMINATION Vital Signs - 24 hr 03/15/19 03/15/19 03/15/19 01:03 02:42 05:00 Temperature 98.4 F 98.1 F Pulse Rate 99 H 64 Respiratory 18 18 Rate Blood Pressure 130/64 114/64 O2 Sat by Pulse 95 Oximetry (%) 03/15/19 03/15/19 03/15/19 08:50 14:23 16:25 Temperature 98.1 F 98.0 F 97.7 F Pulse Rate 72 80 66 Respiratory 18 18 21 H Rate Blood Pressure 134/64 118/54 L 126/57 L O2 Sat by Pulse 95 Oximetry (%) 03/15/19 17:00 Temperature 97.2 F L Pulse Rate 62 Respiratory 20 Rate Blood Pressure 167/79 O2 Sat by Pulse Oximetry (%) GENERAL: Pale, Awake, alert, and fully oriented, in no acute distress. HEAD: Normal with no signs of trauma. EYES: PERRL, EOMI EARS, NOSE, THROAT: Moist mucous membranes NECK: trachea midline, supple LUNGS: Breath sounds equal, clear to auscultation bilaterally. No wheezes, and no crackles. No accessory muscle use. HEART: Regular rate and rhythm, normal S1 and S2 without murmur, rub or gallop. ABDOMEN: diffuse abd tenderness to palpation EXTREMITIES: 2+ pulses, warm, well-perfused. No calf tenderness. No peripheral edema. RECTAL: anthony blood noted in diaper, no hemorrhoids, normal rectal tone NEUROLOGICAL: Cranial nerves II-XII intact. Normal speech. gait not observed PSYCHIATRIC: Good eye contact. Appropriate mood and affect. SKIN: Warm, dry Laboratory Results - last 24 hr 03/14/19 03/14/19 03/14/19 21:00 21:00 22:33 WBC RBC Hgb Hct MCV MCH MCHC RDW Plt Count MPV Absolute Neuts (auto) Neutrophils % Lymphocytes % Monocytes % Eosinophils % Basophils % Nucleated RBC % Sodium Potassium Chloride Carbon Dioxide Anion Gap BUN Creatinine Est GFR (CKD-EPI)AfAm Est GFR (CKD-EPI)NonAf POC Glucometer 157 Random Glucose Hemoglobin A1c % Calcium Total Bilirubin AST ALT Alkaline Phosphatase Troponin I < 0.02 Total Protein Albumin Triglycerides Cholesterol Total LDL Cholesterol HDL Cholesterol TSH Thyroxine (T4) Blood Type A POSITIVE Antibody Screen Negative 03/15/19 03/15/19 03/15/19 06:21 06:35 06:35 WBC 6.3 RBC 4.91 Hgb 13.6 Hct 40.7 MCV 82.9 MCH 27.7 MCHC 33.4 RDW 14.1 Plt Count 215 MPV 8.9 Absolute Neuts (auto) 3.3 Neutrophils % 52.6 D Lymphocytes % 34.6 D Monocytes % 10.5 H Eosinophils % 1.6 D Basophils % 0.7 Nucleated RBC % 0 Sodium Potassium Chloride Carbon Dioxide Anion Gap BUN Creatinine Est GFR (CKD-EPI)AfAm Est GFR (CKD-EPI)NonAf POC Glucometer 88 Random Glucose Hemoglobin A1c % 6.3 Calcium Total Bilirubin AST ALT Alkaline Phosphatase Troponin I Total Protein Albumin Triglycerides Cholesterol Total LDL Cholesterol HDL Cholesterol TSH Thyroxine (T4) Blood Type Antibody Screen 03/15/19 03/15/19 07:30 15:32 WBC RBC Hgb Hct MCV MCH MCHC RDW Plt Count MPV Absolute Neuts (auto) Neutrophils % Lymphocytes % Monocytes % Eosinophils % Basophils % Nucleated RBC % Sodium 141 Potassium 4.4 Chloride 104 Carbon Dioxide 30 Anion Gap 7 L BUN 12.3 Creatinine 0.8 Est GFR (CKD-EPI)AfAm 80.70 Est GFR (CKD-EPI)NonAf 69.63 POC Glucometer 126 Random Glucose 89 Hemoglobin A1c % Calcium 9.4 Total Bilirubin 0.4 AST 19 ALT 50 Alkaline Phosphatase 83 Troponin I Total Protein 6.5 Albumin 3.7 Triglycerides 106 Cholesterol 148 Total LDL Cholesterol 87 HDL Cholesterol 44 TSH 2.93 Thyroxine (T4) 9.5 Blood Type Antibody Screen Active Medications Generic Name Dose Route Start Last Admin Trade Name Freq PRN Reason Stop Dose Admin Acetaminophen 650 mg 03/14/19 21:21 Tylenol - PO Q6H PRN PAIN LEVEL 6-10 Al Hydroxide/Mg Hydroxide 30 ml 03/15/19 16:55 03/15/19 17:01 Mylanta Oral Suspension - PO 30 ml Q6H PRN Administration DYSPEPSIA Aspirin 325 mg 03/15/19 10:00 03/15/19 09:13 Asa - PO 325 mg DAILY [facility] Administration Atorvastatin Calcium 20 mg 03/14/19 22:00 03/14/19 22:34 Lipitor - PO 20 mg HS [facility] Administration Chlorhexidine Gluconate 1 applic 03/15/19 22:00 Hibiclens For Decolonization - TP HS [facility]IS Hydrochlorothiazide 25 mg 03/15/19 10:00 03/15/19 09:13 Hctz - PO 25 mg DAILY [facility] Administration Sodium Chloride 1,000 mls @ 42 mls/hr 03/14/19 14:15 03/15/19 16:46 Normal Saline - IV 42 mls/hr ASDIR [facility] Administration Dextrose/Sodium Chloride 1,000 mls @ 75 mls/hr 03/15/19 19:30 03/15/19 20:54 D5-1/2ns - IV 75 mls/hr ASDIR [facility] Administration Pantoprazole Sodium 80 mg/ 100 mls @ 10 mls/hr 03/15/19 21:00 Sodium Chloride IVPB Q10H CHRIS 8 MG/HR Levothyroxine Sodium 25 mcg 03/15/19 07:00 03/15/19 06:24 Synthroid - PO 25 mcg AM [facility] Administration Lisinopril 20 mg 03/15/19 10:00 03/15/19 09:13 Prinivil PO 20 mg DAILY [facility] Administration Metformin HCl 750 mg 03/15/19 07:00 03/15/19 08:39 Glucophage Xr - PO 750 mg AM [facility] Administration Mupirocin 1 applic 03/15/19 22:00 Bactroban Ointment (For Decolonization) - NS 03/20/19 21:59 BID CH[facility] ASSESSMENT/PLAN: 78 y/o/f with a significant past medical history of hypertension, hyperlipidemia , hypothyroidism and diabetes. Patient worked up for TIA symptoms which have resolved. Patient had multiple bloody BMs today. Admitted to ICU for closer monitoring. #Neuro - Patient presented for TIA symptoms, now resolved. Cleared by neurology - AAOx3 #Cardio - hx of HTN, HLD - hold home HTN meds, continue as BP tolerates #Pulm - maintain SpO2 >90% #GI - 3 bloody BMs noted before transfer to ICU - Started on Protonix drip as per GI - CTA abd/pelvis w/IV contrast without active contrast extravasation to suggest acute gastrointestinal bleed. Moderate mucosal thickening and adjacent edema of the colon from the mid ascending colon to the distal descending colon, compatible with colitis. No evidence for diverticulitis, appendicitis, small bowel obstruction, free pelvic fluid, or free air. - GI consulted, recs appreciated - Monitor H&H with serial CBC - repeat CBC shows hgb 13.6 -> 14.1. No need for transfusion at this time. Will continue to monitor and transfuse as necessary. - Keep NPO #Endo - Hx of DM - On Metformin at home, will switch is ISS while in hospital - BGMs #Renal - BUN/Cr at 21.6/1.2. Uptrending. Monitor #Prophylaxis - holding chemical AC in setting of active bleeding - Protonix drip #FEN - NPO - D5 1/2NS @75mls/hr - monitor and replace lytes as needed #Disposition - Monitor in ICU Visit type - Emergency Visit Emergency Visit: Yes ED Registration Date: 03/14/19 Care time: The patient presented to the Emergency Department on the above date and was hospitalized for further evaluation of their emergent condition. - New Patient This patient is new to me today: Yes Date on this admission: 03/16/19 - Critical Care Critical Care patient: Yes Total Critical Care Time (in minutes): 36 Critical Care Statement: The care of this patient involved high complexity decision making to prevent further life threatening deterioration of the patient 's condition and/or to evaluate & treat vital organ system(s) failure or risk of failure. ATTENDING PHYSICIAN STATEMENT I saw and evaluated the patient. I reviewed the resident's note and discussed the case with the resident. I agree with the resident's findings and plan as documented. SUBJECTIVE: OBJECTIVE: ASSESSMENT AND PLAN:
[2019-03-15 21:51] LABS: BASO % 0.2 % (0-2.0); HEMATOCRIT 43.7 % (32.4-45.2); HEMOGLOBIN 14.1 GM/dL (10.7-15.3); LYMPH % 5.6 % (8-40); MCH 27.2 pg (25.7-33.7); MCHC 32.4 g/dl (32.0-36.0); MEAN CELL VOLUME 83.9 fl (80-96); MEAN PLT VOLUME 9.3 fl (7.5-11.1); MONO % 4.3 % (3.8-10.2); NEUT % 89.9 % (42.8-82.8); PLATELET COUNT 227 K/MM3 (134-434); RDW 14.2 % (11.6-15.6); WHITE BLOOD COUNT 15.8 K/mm3 (4.0-10.0)
[2019-03-15 22:10] LABS: INR 0.99 (0.83-1.09); PROTHROMBIN TIME (PATIENT) 11.7 SEC (9.7-13.0)
[2019-03-15 22:19] LABS: ALBUMIN 3.9 g/dl (3.4-5.0); BILIRUBIN,TOTAL 0.4 mg/dL (0.2-1); BLOOD UREA NITROGEN 21.6 mg/dL (7-18); CALCIUM 9.8 mg/dL (8.5-10.1); CREATININE 1.2 mg/dL (0.55-1.3); POTASSIUM 3.7 mmol/L (3.5-5.1); TOT PROT 6.6 g/dl (6.4-8.2)
--- NOTE | 2019-03-15 23:19 | EKG ---
Test Reason : Blood Pressure : / mmHG Vent. Rate : 080 BPM Atrial Rate : 080 BPM P-R Int : 190 ms QRS Dur : 090 ms QT Int : 376 ms P-R-T Axes : 036 -05 055 degrees QTc Int : 433 ms NORMAL SINUS RHYTHM CANNOT RULE OUT ANTERIOR INFARCT , AGE UNDETERMINED ABNORMAL ECG WHEN COMPARED WITH ECG OF 29-AUG-2016 14:30, NO SIGNIFICANT CHANGE WAS FOUND Confirmed by MALU PALACIO, TONEY ([id number]) on 03/15/2019 11:19:16 PM Referred By: Confirmed By:TONEY TORIBIO MD
[2019-03-15] MEDS ORDERED: ACETAMINOPHEN 1000 MG/100 ML VIAL (NON FORMULARY) IVPB PRN (23:25)
[2019-03-15] MEDS ORDERED: SODIUM CHLORIDE 1,000 ML IV SCH (23:45)
[2019-03-16] MEDS: CHLORHEXIDINE GLUCONATE 4% CLEANSER FOR DECOLONIZATION TP SCH ×2 (00:22→22:10)
[2019-03-16] MEDS: DEXTROSE 5%-0.45% SALINE 1,000 ML IV SCH (00:23)
[2019-03-16] MEDS: PANTOPRAZOLE SODIUM 80 MG in SODIUM CHLORIDE 100 ML IVPB SCH ×3 (00:24→18:57)
[2019-03-16] MEDS: MUPIROCIN 2% TOPICAL OINTMENT FOR DECOLONIZATION NS SCH ×4 (00:28→22:10)
[2019-03-16 00:56] LABS: HEMATOCRIT 43.7 % (32.4-45.2); HEMOGLOBIN 14.7 GM/dL (10.7-15.3); MCH 27.9 pg (25.7-33.7); MCHC 33.7 g/dl (32.0-36.0); MEAN PLT VOLUME 9.3 fl (7.5-11.1); PLATELET COUNT 201 K/MM3 (134-434); RBC 5.27 M/mm3 (3.60-5.2); RDW 14.3 % (11.6-15.6)
[2019-03-16] MEDS: INSULIN SLIDING SCALE (NOVOLOG) 1 VIAL SQ SCH ×4 (06:52→21:39)
[2019-03-16] MEDS ORDERED: CEFTRIAXONE 1 GM in DEXTROSE 5%-WATER - 50 ML IVPB ONE ×2 (07:16→08:30)
[2019-03-16 07:22] LABS: HEMATOCRIT 41.1 % (32.4-45.2); HEMOGLOBIN 13.7 GM/dL (10.7-15.3); MCH 27.5 pg (25.7-33.7); MCHC 33.3 g/dl (32.0-36.0); MEAN CELL VOLUME 82.6 fl (80-96); MEAN PLT VOLUME 8.8 fl (7.5-11.1); PLATELET COUNT 220 K/MM3 (134-434); RBC 4.97 M/mm3 (3.60-5.2); RDW 14.1 % (11.6-15.6); WHITE BLOOD COUNT 16.1 K/mm3 (4.0-10.0)
[2019-03-16 07:48] LABS: ALBUMIN 3.3 g/dl (3.4-5.0); BILIRUBIN,TOTAL 0.4 mg/dL (0.2-1); BLOOD UREA NITROGEN 21.8 mg/dL (7-18); CALCIUM 8.8 mg/dL (8.5-10.1); MAGNESIUM 2.2 mg/dL (1.8-2.4); PHOSPHOROUS 3.2 mg/dL (2.5-4.9); POTASSIUM 3.5 mmol/L (3.5-5.1); TOT PROT 6.1 g/dl (6.4-8.2)
--- NOTE | 2019-03-16 07:48 | CON.GI ---
Consult - History of Present Illness History of Present Illness: GI CONSULT DICTATED - Alcohol/Substance Use Hx Alcohol Use: No - Smoking History Smoking history: Never smoked Have you smoked in the past 12 months: No Home Medications - Allergies Allergies/Adverse Reactions: Allergies Allergy/AdvReac Type Severity Reaction Status Date / Time No Known Allergies Allergy Verified 03/14/19 13:55 - Home Medications Home Medications: Ambulatory Orders Atorvastatin Ca [Lipitor] 20 mg PO HS 08/29/16 Aspirin [ASA -] 325 mg PO DAILY 03/14/19 Levothyroxine [Synthroid -] 25 mcg PO DAILY 03/14/19 Lisinopril/Hydrochlorothiazide [Lisinopril-Hctz 20-25 mg Tab] 1 each PO DAILY Multivitamins [Tab-A-Vit -] 1 tab PO DAILY 03/14/19 [place]-3S/Dha/Epa/Fish Oil [Fish Oil 1,200 mg Softgel] 1 each PO DAILY 03/14/19 metFORMIN HCL [Metformin HCl ER] 750 mg PO DAILY 03/14/19 Physical Exam-GI Vital Signs: Vital Signs Temperature 97.6 F 03/16/19 01:00 Pulse Rate 81 03/16/19 06:16 Respiratory Rate 18 03/16/19 06:16 Blood Pressure 110/71 03/16/19 06:16 O2 Sat by Pulse Oximetry (%) 95 03/15/19 21:09 Labs: INR, PTT INR 0.99 (0.83-1.09) 03/15/19 20:55
--- NOTE | 2019-03-16 08:27 | PN ---
Physical Exam: SUBJECTIVE: Patient seen and examined - no acute events overnight and patient reports she feels much better. No further grossly bloody BM's. Patient reports single BM this AM "darkly tinged." OBJECTIVE: CTAP overnight significant for colitis picture. Vital Signs Period Temp Pulse Resp BP Sys/Valenzuela Pulse Ox Last 24 Hr 97.2 F-98.1 F 62-81 18-21 110-167/54-79 95-95 GENERAL: The patient is awake, alert, and fully oriented, in no acute distress. HEAD: Normal with no signs of trauma. EYES: PERRL, extraocular movements intact, sclera anicteric, conjunctiva clear. No ptosis. ENT: Ears normal, nares patent, oropharynx clear without exudates, moist mucous membranes. NECK: Trachea midline, full range of motion, supple. LUNGS: Breath sounds equal, clear to auscultation bilaterally, no wheezes, no crackles, no accessory muscle use. HEART: Regular rate and rhythm, S1, S2 without murmur, rub or gallop. ABDOMEN: Mild LLQ TTP only. Soft, nondistended, normoactive bowel sounds, no guarding, no rebound, no hepatosplenomegaly, no masses. EXTREMITIES: 2+ pulses, warm, well-perfused, no edema. NEUROLOGICAL: Cranial nerves II through XII grossly intact. Normal speech, gait not observed. PSYCH: Normal mood, normal affect. SKIN: Warm, dry, normal turgor, no rashes or lesions noted Laboratory Results - last 24 hr 03/15/19 03/15/19 03/15/19 06:35 07:30 15:32 WBC RBC Hgb Hct MCV MCH MCHC RDW Plt Count MPV Absolute Neuts (auto) Neutrophils % Lymphocytes % Monocytes % Eosinophils % Basophils % Nucleated RBC % PT with INR INR Sodium 141 Potassium 4.4 Chloride 104 Carbon Dioxide 30 Anion Gap 7 L BUN 12.3 Creatinine 0.8 Est GFR (CKD-EPI)AfAm 80.70 Est GFR (CKD-EPI)NonAf 69.63 POC Glucometer 126 Random Glucose 89 Hemoglobin A1c % 6.3 Calcium 9.4 Phosphorus Magnesium Total Bilirubin 0.4 AST 19 ALT 50 Alkaline Phosphatase 83 Total Protein 6.5 Albumin 3.7 Triglycerides 106 Cholesterol 148 Total LDL Cholesterol 87 HDL Cholesterol 44 TSH 2.93 Thyroxine (T4) 9.5 Blood Type Antibody Screen Crossmatch 03/15/19 03/15/19 03/15/19 20:55 20:55 20:55 WBC 15.8 H RBC 5.20 Hgb 14.1 Hct 43.7 MCV 83.9 MCH 27.2 MCHC 32.4 RDW 14.2 Plt Count 227 MPV 9.3 Absolute Neuts (auto) 14.2 H Neutrophils % 89.9 H D Lymphocytes % 5.6 L D Monocytes % 4.3 Eosinophils % 0.0 D Basophils % 0.2 Nucleated RBC % 0 PT with INR 11.70 INR 0.99 Sodium 138 Potassium 3.7 Chloride 102 Carbon Dioxide 23 Anion Gap 13 BUN 21.6 H Creatinine 1.2 Est GFR (CKD-EPI)AfAm 49.43 Est GFR (CKD-EPI)NonAf 42.65 POC Glucometer Random Glucose 173 H Hemoglobin A1c % Calcium 9.8 Phosphorus Magnesium Total Bilirubin 0.4 AST 21 ALT 51 Alkaline Phosphatase 91 Total Protein 6.6 Albumin 3.9 Triglycerides Cholesterol Total LDL Cholesterol HDL Cholesterol TSH Thyroxine (T4) Blood Type Antibody Screen Crossmatch 03/15/19 03/16/19 03/16/19 20:55 00:20 06:48 WBC 18.0 H RBC 5.27 H Hgb 14.7 Hct 43.7 MCV 83.0 MCH 27.9 MCHC 33.7 RDW 14.3 Plt Count 201 MPV 9.3 Absolute Neuts (auto) Neutrophils % Lymphocytes % Monocytes % Eosinophils % Basophils % Nucleated RBC % PT with INR INR Sodium Potassium Chloride Carbon Dioxide Anion Gap BUN Creatinine Est GFR (CKD-EPI)AfAm Est GFR (CKD-EPI)NonAf POC Glucometer 225 Random Glucose Hemoglobin A1c % Calcium Phosphorus Magnesium Total Bilirubin AST ALT Alkaline Phosphatase Total Protein Albumin Triglycerides Cholesterol Total LDL Cholesterol HDL Cholesterol TSH Thyroxine (T4) Blood Type A POSITIVE Antibody Screen Negative Crossmatch See Detail 03/16/19 03/16/19 06:50 06:50 WBC 16.1 H RBC 4.97 Hgb 13.7 Hct 41.1 MCV 82.6 MCH 27.5 MCHC 33.3 RDW 14.1 Plt Count 220 MPV 8.8 Absolute Neuts (auto) Neutrophils % Lymphocytes % Monocytes % Eosinophils % Basophils % Nucleated RBC % PT with INR INR Sodium 137 Potassium 3.5 Chloride 102 Carbon Dioxide 25 Anion Gap 10 BUN 21.8 H Creatinine 1.0 Est GFR (CKD-EPI)AfAm 61.62 Est GFR (CKD-EPI)NonAf 53.17 POC Glucometer Random Glucose 210 H Hemoglobin A1c % Calcium 8.8 Phosphorus 3.2 Magnesium 2.2 Total Bilirubin 0.4 AST 15 ALT 43 Alkaline Phosphatase 76 Total Protein 6.1 L Albumin 3.3 L Triglycerides Cholesterol Total LDL Cholesterol HDL Cholesterol TSH Thyroxine (T4) Blood Type Antibody Screen Crossmatch Active Medications Generic Name Dose Route Start Last Admin Trade Name Freq PRN Reason Stop Dose Admin Acetaminophen 1,000 mg 03/15/19 23:25 03/16/19 01:00 Ofirmev Injection - IVPB 1,000 mg Q6H PRN Administration PAIN LEVEL 1-5 Chlorhexidine Gluconate 1 applic 03/15/19 22:00 03/16/19 00:22 Hibiclens For Decolonization - TP Not Given HS CHRIS Dextrose/Sodium Chloride 1,000 mls @ 75 mls/hr 03/15/19 22:51 03/16/19 00:23 D5-1/2ns - IV 75 mls/hr ASDIR CHRIS Administration Pantoprazole Sodium 80 mg/ 100 mls @ 10 mls/hr 03/16/19 07:00 03/16/19 00:24 Sodium Chloride IVPB 10 mls/hr Q10H CHRIS Administration 8 MG/HR Ceftriaxone Sodium 1 gm/ 50 mls @ 200 mls/hr 03/17/19 10:00 Dextrose IVPB DAILY CHRIS Protocol Metronidazole 500 mg in 100 mls @ 100 mls/hr 03/16/19 13:00 Flagyl 500mg Premixed Ivpb - IVPB Q8H-IV CHRIS Ceftriaxone Sodium 1 gm/ 50 mls @ 200 mls/hr 03/16/19 08:30 Dextrose IVPB 03/16/19 08:44 ONCE ONE Protocol Insulin Aspart 1 vial 03/16/19 07:00 03/16/19 06:52 Novolog Vial Sliding Scale - SQ 2 units ACHS CHRIS Administration Protocol Mupirocin 1 applic 03/15/19 22:00 03/16/19 00:29 Bactroban Ointment (For Decolonization) - NS 03/20/19 21:59 1,000 mg BID CHRIS Administration ASSESSMENT/PLAN: #TIA #GI Bleed #HTN #HLD #IDDM #Hypothyroidism -TIA symptoms resolved; cleared by neurology -CTAP significant for colitis w/out signs of acute GI bleed -H/H stable -NPO -GI consult pending -Patient started on cipro/flagyl -Home HTN/HLD meds when cleared by GI -BGMs, ISS in hospital -Replete lytes as needed Visit type - Emergency Visit Emergency Visit: Yes ED Registration Date: 03/14/19 Care time: The patient presented to the Emergency Department on the above date and was hospitalized for further evaluation of their emergent condition. - New Patient This patient is new to me today: Yes Date on this admission: 03/16/19 - Critical Care Critical Care patient: Yes Total Critical Care Time (in minutes): 34 Critical Care Statement: The care of this patient involved high complexity decision making to prevent further life threatening deterioration of the patient 's condition and/or to evaluate & treat vital organ system(s) failure or risk of failure. ATTENDING PHYSICIAN STATEMENT I saw and evaluated the patient. I reviewed the resident's note and discussed the case with the resident. I agree with the resident's findings and plan as documented. SUBJECTIVE: OBJECTIVE: ASSESSMENT AND PLAN:
[2019-03-16] MEDS ORDERED: cefTRIAXone SODIUM 1 GM VIAL ONE (08:32)
[2019-03-16] MEDS ORDERED: DEXTROSE 5%-WATER - 50 ML IVPB ONE (08:33)
--- NOTE | 2019-03-16 09:28 | CON.CARD ---
Consult Consult Specialty:: Cardiology Referred by:: Dr. Camacho Reason for Consultation:: TIA - History of Present Illness Chief Complaint: Slurred speech History of Present Illness: 78 F HTN, DM, prior TIA presented for slurred speech and was being evaluated for TIA when she then developed severe diffuse abdominal pain and GIB, transferred to ICU. Denies palps/ h/o AF/exertional CP or SOB. Does not see a informatics nurse. May years ago after being in hot sun developed slurred speech but reports negative work up at the time. She does not know exactly why she takes ASA 325 daily, says it is for "prevention" Seen, examined in ICU in stable condition and in NSR on tele. Denies abdominal pain, CP, SOB. Speech back to baseline. Head CT without acute path. - History Source History Provided By: Patient Limitations to Obtaining History: No Limitations - Past Medical History [employer]: No: Alzheimer's, CVA, Dementia, Migraine, Multiple Sclerosis, Peripheral Neuropathy, Parkinson's, Seizure, Syncope, TIA, Vertigo, Other Cardio/Vascular: Yes: HTN Pulmonary: No: Asthma, Bronchitis, Cancer, COPD, O2 Dependent, Pneumonia, Previously Intubated, Pulmonary Embolus, Pulmonary Fibrosis, Sleep Apnea, Other Gastrointestinal: No: Ascites, Cancer, Constipation, Crohn's Disease, Diverticulitis, Diverticulosis, Esophageal Varices, Gastritis, GERD, GI Bleed, Hemorrhoids, Hiatal Hernia, Inflamatory Bowel Disease, Irritable Bowel Disease, Pancreatitis, Peptic Ulcer Disease, Ulcerative Colitis, Other Hepatobiliary: No: Cirrhosis, Cholelithiasis, Cholecystitis, Choledocholithiasis , Hepatitis A, Hepatitis B, Hepatitis C, Other Renal/: No: Renal Failure, Renal Inusuff, BPH, Cancer, Hematuria, Hemodialysis , Neurogenic Bladder, Renal Calculi, UTI, Other Reproductive: No: Ectopic , Endometriosis, Fibroids, PID, Polycystic Ovary Syndrome, Postmenopausal, Other Heme/Onc: No: Anemia, B12 Deficiency, Bleeding Disorder, Cancer, Current Chemotherapy, Current Radiation Therapy, Hemochromatosis, Hypercoaguable State, Myeloproliferative Synd, Sickle Cell Disease, Sickle Cell Trait, Thrombocytopenia, Other Infectious Disease: No: AIDS, C-Diff, Herpes Zoster, HIV, MRSA, STD's, Tuberculosis, VREF, Other Psych: No: Addictions, Anxiety, Bipolar, Depression, Panic, Psychosis, Schizophrenia, Other Musculoskeletal: No: Bursitis, Chronic low back pain, Hemiparesis, Hemiplegia, Osteoarthritis, Paraplegia, Other Rheumatology: No: Fibromyalgia, Gout, Lupus, Rheumatoid Arthritis, Sarcoidosis, Vasculitis, Other Endocrine: Yes: Diabetes Mellitus, Hypothyroidism - Alcohol/Substance Use Hx Alcohol Use: No - Smoking History Smoking history: Never smoked Have you smoked in the past 12 months: No - Social History History of Recent Travel: No Home Medications - Allergies Allergies/Adverse Reactions: Allergies Allergy/AdvReac Type Severity Reaction Status Date / Time No Known Allergies Allergy Verified 03/14/19 13:55 - Home Medications Home Medications: Ambulatory Orders Atorvastatin Ca [Lipitor] 20 mg PO HS 08/29/16 Aspirin [ASA -] 325 mg PO DAILY 03/14/19 Levothyroxine [Synthroid -] 25 mcg PO DAILY 03/14/19 Lisinopril/Hydrochlorothiazide [Lisinopril-Hctz 20-25 mg Tab] 1 each PO DAILY Multivitamins [Tab-A-Vit -] 1 tab PO DAILY 03/14/19 [place]-3S/Dha/Epa/Fish Oil [Fish Oil 1,200 mg Softgel] 1 each PO DAILY 03/14/19 metFORMIN HCL [Metformin HCl ER] 750 mg PO DAILY 03/14/19 Family Medical History Family History: Unremarkable Review of Systems Findings/Remarks: see HPI - Review of Systems Constitutional: reports: No Symptoms Eyes: reports: No Symptoms HENT: reports: No Symptoms Neck: reports: No Symptoms Cardiovascular: reports: No Symptoms Respiratory: reports: No Symptoms Gastrointestinal: reports: Abdominal Pain (almost completely resolved now) Genitourinary: reports: No Symptoms Breasts: reports: No Symptoms Reported Musculoskeletal: reports: No Symptoms Integumentary: reports: No Symptoms Neurological: reports: No Symptoms Endocrine: reports: No Symptoms Hematology/Lymphatic: reports: No Symptoms Psychiatric: reports: No Symptoms - Risk Factors Known Risk Factors: Yes: Hypertension Vital Signs: Vital Signs Temperature 97.6 F 03/16/19 01:00 Pulse Rate 81 03/16/19 06:16 Respiratory Rate 18 03/16/19 06:16 Blood Pressure 110/71 03/16/19 06:16 O2 Sat by Pulse Oximetry (%) 95 03/15/19 21:09 Constitutional: Yes: No Distress, Calm Eyes: Yes: Conjunctiva Clear HENT: Yes: Atraumatic Neck: Yes: Supple Respiratory: Yes: CTA Bilaterally Gastrointestinal: Yes: Soft (No rebound or guarding) Cardiovascular: Yes: Regular Rate and Rhythm JVD: No Carotid Bruit: No PMI: Non-Displaced Heart Sounds: Yes: S1, S2 (RRR) Edema: No Peripheral Pulses WNL: Yes Neurological: Yes: Alert, Oriented ...Motor Strength: WNL - Other Data Labs, Other Data: CBC, BMP 03/16/19 06:50 03/16/19 06:50 INR, PTT INR 0.99 (0.83-1.09) 03/15/19 20:55 Laboratory Tests 03/15/19 03/16/19 03/16/19 20:55 00:20 06:50 WBC 18.0 H 16.1 H Hgb 14.7 13.7 Plt Count 201 220 INR 0.99 Sodium Potassium Creatinine Albumin 03/16/19 06:50 WBC Hgb Plt Count INR Sodium 137 Potassium 3.5 Creatinine 1.0 Albumin 3.3 L NSR 74bpm, left axis. Inc RBBB, Poor R wave Echo: Pending Imaging - Results Cat Scan: Report Reviewed EKG: Image Reviewed Assessment/Plan IMP: TIA Acute GI bleed (patient on chronic full dose ASA) HTN DM REC: 1. ICU monitoring/ IV access/ follow H/H/ NPO/ IV PPI 2. GI evaluation 3. Hold ASA and BP meds in setting of acute GI Bleed. 4. Echo and carotid US; continued tele to r/o occult PAF 5. Try and obtain further hx from family re indication for full dose ASA 6. Timing of endoscopic evaluation as per GI/Neuro. Will follow.
--- NOTE | 2019-03-16 09:37 | PN ---
Teaching Attending Note Name of Resident: Kuldip Rae ATTENDING PHYSICIAN STATEMENT I saw and evaluated the patient. I reviewed the resident's note and discussed the case with the resident. I agree with the resident's findings and plan as documented. SUBJECTIVE: Patient seen and examined in the ICU. Awake and alert. No occult bleeding overnight. Abdominal pain has improved from 01/16 to 04/18. No CP or SOB. Intake & Output 03/13/19 03/14/19 03/15/19 03/16/19 23:59 23:59 23:59 23:59 Intake Total 745 570 Balance 745 570 Weight 193 lb 12.8 oz Last Vital Signs Temp Pulse Resp BP Pulse Ox 97.6 F 81 18 110/71 95 03/16/19 01:00 03/16/19 06:16 03/16/19 06:16 03/16/19 06:16 03/15/19 21:09 Active Medications Acetaminophen (Ofirmev Injection -) 1,000 mg IVPB Q6H PRN PRN Reason: PAIN LEVEL 1-5 Last Admin: 03/16/19 01:00 Dose: 1,000 mg Chlorhexidine Gluconate (Hibiclens For Decolonization -) 1 applic TP HS CHRIS Last Admin: 03/16/19 00:22 Dose: Not Given Dextrose/Sodium Chloride (D5-1/2ns -) 1,000 mls @ 75 mls/hr IV ASDIR CHRIS Last Admin: 03/16/19 00:23 Dose: 75 mls/hr Pantoprazole Sodium 80 mg/ (Sodium Chloride) 100 mls @ 10 mls/hr IVPB Q10H CHRIS Last Admin: 03/16/19 00:24 Dose: 10 mls/hr Ceftriaxone Sodium 1 gm/ (Dextrose) 50 mls @ 200 mls/hr IVPB DAILY CHRIS; Protocol Metronidazole (Flagyl 500mg Premixed Ivpb -) 500 mg in 100 mls @ 100 mls/hr IVPB Q8H-IV CHRIS Insulin Aspart (Novolog Vial Sliding Scale -) 1 vial SQ ACHS CHRIS; Protocol Last Admin: 03/16/19 06:52 Dose: 2 units Mupirocin (Bactroban Ointment (For Decolonization) -) 1 applic NS BID CHRIS Stop: 03/20/19 21:59 Last Admin: 03/16/19 00:29 Dose: 1,000 mg GENERAL: Pale, Awake, alert, and fully oriented, in no acute distress. HEAD: Normal with no signs of trauma. EYES: PERRL, EOMI EARS, NOSE, THROAT: Moist mucous membranes NECK: trachea midline, supple LUNGS: Breath sounds equal, clear to auscultation bilaterally. No wheezes, and no crackles. No accessory muscle use. HEART: Regular rate and rhythm, normal S1 and S2 without murmur, rub or gallop. ABDOMEN: Mild abdominal tenderness to palpation EXTREMITIES: 2+ pulses, warm, well-perfused. No calf tenderness. No peripheral edema. RECTAL: anthony blood noted in diaper, no hemorrhoids, normal rectal tone NEUROLOGICAL: Non-focal PSYCHIATRIC: Good eye contact. Appropriate mood and affect. SKIN: Warm, dry Laboratory Results - last 24 hr 03/15/19 03/15/19 03/15/19 15:32 20:55 20:55 WBC 15.8 H RBC 5.20 Hgb 14.1 Hct 43.7 MCV 83.9 MCH 27.2 MCHC 32.4 RDW 14.2 Plt Count 227 MPV 9.3 Absolute Neuts (auto) 14.2 H Neutrophils % 89.9 H D Lymphocytes % 5.6 L D Monocytes % 4.3 Eosinophils % 0.0 D Basophils % 0.2 Nucleated RBC % 0 PT with INR 11.70 INR 0.99 Sodium Potassium Chloride Carbon Dioxide Anion Gap BUN Creatinine Est GFR (CKD-EPI)AfAm Est GFR (CKD-EPI)NonAf POC Glucometer 126 Random Glucose Calcium Phosphorus Magnesium Total Bilirubin AST ALT Alkaline Phosphatase Total Protein Albumin Blood Type Antibody Screen Crossmatch 03/15/19 03/15/19 03/16/19 20:55 20:55 00:20 WBC 18.0 H RBC 5.27 H Hgb 14.7 Hct 43.7 MCV 83.0 MCH 27.9 MCHC 33.7 RDW 14.3 Plt Count 201 MPV 9.3 Absolute Neuts (auto) Neutrophils % Lymphocytes % Monocytes % Eosinophils % Basophils % Nucleated RBC % PT with INR INR Sodium 138 Potassium 3.7 Chloride 102 Carbon Dioxide 23 Anion Gap 13 BUN 21.6 H Creatinine 1.2 Est GFR (CKD-EPI)AfAm 49.43 Est GFR (CKD-EPI)NonAf 42.65 POC Glucometer Random Glucose 173 H Calcium 9.8 Phosphorus Magnesium Total Bilirubin 0.4 AST 21 ALT 51 Alkaline Phosphatase 91 Total Protein 6.6 Albumin 3.9 Blood Type A POSITIVE Antibody Screen Negative Crossmatch See Detail 03/16/19 03/16/19 03/16/19 06:48 06:50 06:50 WBC 16.1 H RBC 4.97 Hgb 13.7 Hct 41.1 MCV 82.6 MCH 27.5 MCHC 33.3 RDW 14.1 Plt Count 220 MPV 8.8 Absolute Neuts (auto) Neutrophils % Lymphocytes % Monocytes % Eosinophils % Basophils % Nucleated RBC % PT with INR INR Sodium 137 Potassium 3.5 Chloride 102 Carbon Dioxide 25 Anion Gap 10 BUN 21.8 H Creatinine 1.0 Est GFR (CKD-EPI)AfAm 61.62 Est GFR (CKD-EPI)NonAf 53.17 POC Glucometer 225 Random Glucose 210 H Calcium 8.8 Phosphorus 3.2 Magnesium 2.2 Total Bilirubin 0.4 AST 15 ALT 43 Alkaline Phosphatase 76 Total Protein 6.1 L Albumin 3.3 L Blood Type Antibody Screen Crossmatch ASSESSMENT/PLAN: Acute GI Bleed from Colitis Hypertension Hyperlipidemia Hypothyroidism Diabetes Resolved TIA Normal transfusion thresholds O2 as needed GI evaluation PO when cleared by GI OOB to chair VTE prophylaxis Glycemic control Floor Dr Bolaños
--- NOTE | 2019-03-16 11:46 | CONSULT ---
- Consultation REQUESTING PROVIDER: Nicholas PALACIO CONSULT REQUEST: We have been asked to surgically evaluate this patient for abdominal pain. PCP:Nir Camacho MD HISTORY OF PRESENT ILLNESS: ELIUD yesterday who is an 78 y/o W/F admitted w/ possible TIA; after admission she began wretching and experienced sharp epigastric pain and abdominal cramping followed by 2 large incontnent bloody bowel movements; a w/u was done and patient xfrred to the ICU for ongoing care were she has been stable; she has no c/o this morning. She denies recent constipation or any other GI c/o. PMHx: HLD/hypothyroid/htn/NIDDM PSHx: laparoscopic hiatal hernia repair 3 years ago Home Medications Medication Instructions Recorded Atorvastatin Ca [Lipitor] 20 mg PO HS 08/29/16 Aspirin [ASA -] 325 mg PO DAILY 03/14/19 Levothyroxine [Synthroid -] 25 mcg PO DAILY 03/14/19 Lisinopril/Hydrochlorothiazide 1 each PO DAILY 03/14/19 [Lisinopril-Hctz 20-25 mg Tab] Multivitamins [Tab-A-Vit -] 1 tab PO DAILY 03/14/19 [place]-3S/Dha/Epa/Fish Oil [Fish 1 each PO DAILY 03/14/19 Oil 1,200 mg Softgel] metFORMIN HCL [Metformin HCl ER] 750 mg PO DAILY 03/14/19 Allergies Allergy/AdvReac Type Severity Reaction Status Date / Time No Known Allergies Allergy Verified 03/14/19 13:55 REVIEW OF SYSTEMS: CONSTITUTIONAL: Absent: fever, chills, diaphoresis, generalized weakness, malaise, loss of appetite, weight change CARDIOVASCULAR: Absent: chest pain, syncope, palpitations, irregular heart rate, lightheadedness , peripheral edema RESPIRATORY: Absent: cough, shortness of breath, dyspnea with exertion, wheezing, stridor, hemoptysis GASTROINTESTINAL: Present: abdominal pain, abdominal distension, nausea, vomiting, diarrhea, melena, GENITOURINARY: Absent: dysuria, frequency, urgency, hesitancy, hematuria, flank pain, genital pain MUSCULOSKELETAL: Absent: myalgia, arthralgia, joint swelling, back pain, neck pain SKIN: Absent: rash, itching, pallor HEMATOLOGIC/IMMUNOLOGIC: Absent: easy bleeding, easy bruising, lymphadenopathy NEUROLOGIC: Present: focal weakness, , dizziness, unsteady gait, bowel incontinence PSYCHIATRIC: Absent: anxiety, depression, suicidal or homicidal ideation, hallucinations. PHYSICAL EXAM: GENERAL: Awake, alert, and fully oriented, in no acute distress. HEAD: Normal with no signs of trauma. EYES: PERRL, sclera anicteric, conjunctiva clear. NECK: Normal ROM, supple without lymphadenopathy, JVD, or masses. ABDOMEN: Soft, nontender, not distended, normoactive bowel sounds, no guarding, no rebound, no masses. No organomegaly. No hernia MUSCULOSKELETAL: Normal ROM at all joints. No bony deformities or tenderness. No CVA tenderness. UPPER EXTREMITIES: 2+ pulses, warm, well-perfused. No cyanosis. Cap refill <2 seconds. No peripheral edema. LOWER EXTREMITIES: 2+ pulses, warm, well-perfused. No calf tenderness. No peripheral edema. NEUROLOGICAL: Normal speech, gait not observed. PSYCH: Cooperative. Good eye contact. Appropriate mood and affect. SKIN: Warm, dry, normal turgor, no rashes or lesions noted. Vital Signs Temperature 97.6 F 03/16/19 01:00 Pulse Rate 79 03/16/19 10:00 Respiratory Rate 20 03/16/19 10:00 Blood Pressure 142/61 03/16/19 10:00 O2 Sat by Pulse Oximetry (%) 95 03/16/19 09:00 Lab Results WBC 16.1 K/mm3 (4.0-10.0) H 03/16/19 06:50 RBC 4.97 M/mm3 (3.60-5.2) 03/16/19 06:50 Hgb 13.7 GM/dL (10.7-15.3) 03/16/19 06:50 Hct 41.1 % (32.4-45.2) 03/16/19 06:50 MCV 82.6 fl (80-96) 03/16/19 06:50 MCHC 33.3 g/dl (32.0-36.0) 03/16/19 06:50 RDW 14.1 % (11.6-15.6) 03/16/19 06:50 Plt Count 220 K/MM3 (134-434) 03/16/19 06:50 Sodium 137 mmol/L (136-145) 03/16/19 06:50 Potassium 3.5 mmol/L (3.5-5.1) 03/16/19 06:50 Chloride 102 mmol/L (98-107) 03/16/19 06:50 Carbon Dioxide 25 mmol/L (21-32) 03/16/19 06:50 Anion Gap 10 MMOL/L (8-16) 03/16/19 06:50 BUN 21.8 mg/dL (7-18) H 03/16/19 06:50 Creatinine 1.0 mg/dL (0.55-1.3) 03/16/19 06:50 Random Glucose 210 mg/dL (74-106) H 03/16/19 06:50 Calcium 8.8 mg/dL (8.5-10.1) 03/16/19 06:50 Blood Type A POSITIVE 03/15/19 20:55 Antibody Screen Negative 03/15/19 20:55 INR 0.99 (0.83-1.09) 03/15/19 20:55 All imaging studies to date reviewed. IMP: No evidence of an acute surgical abdomen; most likely colitis based on imaging studies. PLAN: Continue as per ICU; GI evaluation is pending. Leonid Cochran MD FACS
[2019-03-16 13:08] VITALS: BMI 33.1
--- NOTE | 2019-03-16 16:36 | PN ---
Physical Exam: SUBJECTIVE: Patient seen and examined. She reports some abdominal discomfort. She has had small amounts of blood with BMs. OBJECTIVE: Vital Signs Period Temp Pulse Resp BP Sys/Valenzuela Pulse Ox Last 24 Hr 97.2 F-97.6 F 62-84 16-20 107-167/61-89 95-95 GENERAL: The patient is awake, alert, and fully oriented, in no acute distress. LUNGS: Breath sounds equal, clear to auscultation bilaterally, no wheezes, no crackles, no accessory muscle use. HEART: Regular rate and rhythm, S1, S2 without murmur, rub or gallop. ABDOMEN: Obese, soft, nontender, nondistended, normoactive bowel sounds, no guarding, no rebound, no hepatosplenomegaly, no masses. EXTREMITIES: 2+ pulses, warm, well-perfused, no edema. NEUROLOGICAL: Cranial nerves II through XII grossly intact. Normal speech, strength 5/5 in all extremities, sensation intact, DTRs 2+, gait not observed. Laboratory Results - last 24 hr 03/15/19 03/15/19 03/15/19 20:55 20:55 20:55 WBC 15.8 H RBC 5.20 Hgb 14.1 Hct 43.7 MCV 83.9 MCH 27.2 MCHC 32.4 RDW 14.2 Plt Count 227 MPV 9.3 Absolute Neuts (auto) 14.2 H Neutrophils % 89.9 H D Lymphocytes % 5.6 L D Monocytes % 4.3 Eosinophils % 0.0 D Basophils % 0.2 Nucleated RBC % 0 PT with INR 11.70 INR 0.99 Sodium 138 Potassium 3.7 Chloride 102 Carbon Dioxide 23 Anion Gap 13 BUN 21.6 H Creatinine 1.2 Est GFR (CKD-EPI)AfAm 49.43 Est GFR (CKD-EPI)NonAf 42.65 POC Glucometer Random Glucose 173 H Calcium 9.8 Phosphorus Magnesium Total Bilirubin 0.4 AST 21 ALT 51 Alkaline Phosphatase 91 Total Protein 6.6 Albumin 3.9 Blood Type Antibody Screen Crossmatch 03/15/19 03/16/19 03/16/19 20:55 00:20 06:48 WBC 18.0 H RBC 5.27 H Hgb 14.7 Hct 43.7 MCV 83.0 MCH 27.9 MCHC 33.7 RDW 14.3 Plt Count 201 MPV 9.3 Absolute Neuts (auto) Neutrophils % Lymphocytes % Monocytes % Eosinophils % Basophils % Nucleated RBC % PT with INR INR Sodium Potassium Chloride Carbon Dioxide Anion Gap BUN Creatinine Est GFR (CKD-EPI)AfAm Est GFR (CKD-EPI)NonAf POC Glucometer 225 Random Glucose Calcium Phosphorus Magnesium Total Bilirubin AST ALT Alkaline Phosphatase Total Protein Albumin Blood Type A POSITIVE Antibody Screen Negative Crossmatch See Detail 03/16/19 03/16/19 03/16/19 06:50 06:50 12:15 WBC 16.1 H RBC 4.97 Hgb 13.7 Hct 41.1 MCV 82.6 MCH 27.5 MCHC 33.3 RDW 14.1 Plt Count 220 MPV 8.8 Absolute Neuts (auto) Neutrophils % Lymphocytes % Monocytes % Eosinophils % Basophils % Nucleated RBC % PT with INR INR Sodium 137 Potassium 3.5 Chloride 102 Carbon Dioxide 25 Anion Gap 10 BUN 21.8 H Creatinine 1.0 Est GFR (CKD-EPI)AfAm 61.62 Est GFR (CKD-EPI)NonAf 53.17 POC Glucometer 166 Random Glucose 210 H Calcium 8.8 Phosphorus 3.2 Magnesium 2.2 Total Bilirubin 0.4 AST 15 ALT 43 Alkaline Phosphatase 76 Total Protein 6.1 L Albumin 3.3 L Blood Type Antibody Screen Crossmatch 03/16/19 15:56 WBC RBC Hgb Hct MCV MCH MCHC RDW Plt Count MPV Absolute Neuts (auto) Neutrophils % Lymphocytes % Monocytes % Eosinophils % Basophils % Nucleated RBC % PT with INR INR Sodium Potassium Chloride Carbon Dioxide Anion Gap BUN Creatinine Est GFR (CKD-EPI)AfAm Est GFR (CKD-EPI)NonAf POC Glucometer 217 Random Glucose Calcium Phosphorus Magnesium Total Bilirubin AST ALT Alkaline Phosphatase Total Protein Albumin Blood Type Antibody Screen Crossmatch Active Medications Generic Name Dose Route Start Last Admin Trade Name Freq PRN Reason Stop Dose Admin Acetaminophen 1,000 mg 03/15/19 23:25 03/16/19 01:00 Ofirmev Injection - IVPB 1,000 mg Q6H PRN Administration PAIN LEVEL 1-5 Chlorhexidine Gluconate 1 applic 03/15/19 22:00 03/16/19 00:22 Hibiclens For Decolonization - TP Not Given HS CHRIS Dextrose/Sodium Chloride 1,000 mls @ 75 mls/hr 03/15/19 22:51 03/16/19 00:23 D5-1/2ns - IV 75 mls/hr ASDIR CHRIS Administration Pantoprazole Sodium 80 mg/ 100 mls @ 10 mls/hr 03/16/19 07:00 03/16/19 07:00 Sodium Chloride IVPB 10 mls/hr Q10H CHRIS Administration 8 MG/HR Ceftriaxone Sodium 1 gm/ 50 mls @ 200 mls/hr 03/17/19 10:00 Dextrose IVPB DAILY CHRIS Protocol Metronidazole 500 mg in 100 mls @ 100 mls/hr 03/16/19 13:00 03/16/19 12:23 Flagyl 500mg Premixed Ivpb - IVPB 100 mls/hr Q8H-IV CHRIS Administration Insulin Aspart 1 vial 03/16/19 07:00 03/16/19 15:57 Novolog Vial Sliding Scale - SQ 2 units ACHS CHRIS Administration Protocol Mupirocin 1 applic 03/15/19 22:00 03/16/19 09:46 Bactroban Ointment (For Decolonization) - NS 03/20/19 21:59 1 applic BID CHRIS Administration ASSESSMENT/PLAN: This is an 78 year old woman with a history of HTN, hyperlipidemia, hypothyroidism, type 2 DM who presented to the ED with headache and difficulty speaking. 1. TIA - Resolved - Aspirin held secondary to GI bleeding - Restart Lipitor when able to take PO meds - Carotid dopplers show no evidence of hemodynamically significant stenosis - Echo ordered - Head CT showed moderate atrophy, moderate to marked periventricular chronic microvascular ischemic changes 2. Rectal bleeding secondary to acute colitis - Hgb stable - Continue ceftriaxone, Flagyl for presumed infectious etiology - Tolerating clear liquids - Continue IV fluid 3. Headache - Resolved 4. Hyperlipidemia - Restart Lipitor when able to take PO meds 5. HTN - BP ok - Restart Lisinopril, HCTZ when able to take PO meds 6. Type 2 DM - Metformin held - Continue Novolog sliding scale 7. Hypothyroidism - Synthroid IV until able to take PO meds Visit type - Emergency Visit Emergency Visit: Yes ED Registration Date: 03/16/19 Care time: The patient presented to the Emergency Department on the above date and was hospitalized for further evaluation of their emergent condition. - New Patient This patient is new to me today: Yes Date on this admission: 03/16/19 - Critical Care Critical Care patient: No - Discharge Referral Referred to [facility] Med P.C.: No
--- NOTE | 2019-03-16 19:13 | CONS ---
DATE OF CONSULTATION: 03/16/2019 The patient is an 78-year-old female, past medical history of hypertension, hyperlipidemia, hypothyroidism, diabetes, who presented to the emergency room with a TIA. During the course, she had an episode of nausea, vomiting, and retching. Following that, she experienced an episode of bloody bowel movement. It is unclear if she also had dark bowel movement at the time. The patient admits to abdominal pain, which was in the epigastric but now is diffuse in nature. She denies previous episodes in the past. She states her last endoscopy and colonoscopy was done within the past 10 years and it was done by Dr. Mendieta. She did have some polyps removed at the time. Of note, she also had a hiatal hernia repair in the past. PAST MEDICAL AND SURGICAL HISTORY: As listed in the HPI. ALLERGIES: No known drug allergies. HOME MEDICATIONS: 1. Lipitor. 2. Aspirin. 3. Synthroid. 4. Hydrochlorothiazide. 5. Lisinopril. 6. Multivitamin. 7. Metformin. REVIEW OF SYSTEMS: As per the HPI. SOCIAL HISTORY: Does not drink, smoke, or use drugs. FAMILY HISTORY: No history of GI or gynecological malignancy. PHYSICAL EXAMINATION: General: No acute distress. Vital Signs: Temperature 98.6, pulse 79, blood pressure 140/60, respiratory rate 12, pulse oximetry 95% on room air. HEENT: Anicteric sclerae. Cardiovascular: S1, S2, regular rate and rhythm. Lungs: Bilaterally clear to auscultation. Abdomen: Soft and nontender. Extremities: Without edema. LABORATORY DATA: White blood cell count 16, hemoglobin 13, hematocrit 41, MCV 82, platelet count 220, INR 0.99. Sodium 137, potassium 3.5, BUN 21, creatinine 1, glucose 210, total bilirubin 0.4, AST 15, ALT 43, alkaline phosphatase 76. She had CTA performed last of the abdomen and pelvis, which final results are pending. There is some thickening noted in the colon. Will await final report. IMPRESSION: Nausea, vomiting, retching, episode of apparently hematochezia and questionable melena. Upper gastrointestinal source cannot be entirely excluded, considering she has had surgery in the past and also had retching and Autumn-Ahn tear is included in the differential diagnosis as well as peptic ulcer disease. At this time, there is no sign of an overt GI bleed, she is hemodynamically stable with no further episodes of melena or hematochezia. Also with abdominal pain and questionable thickening of the colon on imaging studies. Will await final report to exclude colitis. RECOMMENDATION: Stool studies for C difficile, ova and parasite, and leukocytes should be obtained. She did not have diarrhea prior to this episode. Would continue her on antibiotic coverage with ceftriaxone and metronidazole for questionable colitis. She could be advanced to a clear liquid diet. She should be n.p.o. midnight for diagnostic upper endoscopy tomorrow. Protonix should be continued. Serial hemoglobin and hematocrit q.12. Avoid NSAID. DO HERNANDEZ MCARTHUR/[id number]
[2019-03-16] MEDS: ATORVASTATIN CA 20 MG TABLET (FP) PO SCH (21:26)
--- NOTE | 2019-03-17 01:02 | EKG ---
Test Reason : Blood Pressure : / mmHG Vent. Rate : 070 BPM Atrial Rate : 070 BPM P-R Int : 184 ms QRS Dur : 096 ms QT Int : 398 ms P-R-T Axes : 019 -27 046 degrees QTc Int : 429 ms SINUS RHYTHM WITH MARKED SINUS ARRHYTHMIA CANNOT RULE OUT ANTERIOR INFARCT (CITED ON OR BEFORE 14-MAR-2019) ABNORMAL ECG WHEN COMPARED WITH ECG OF 14-MAR-2019 14:10, NO SIGNIFICANT CHANGE WAS FOUND Confirmed by TONEY TORIBIO MD ([id number]) on 03/17/2019 1:02:18 AM Referred By: Confirmed By:TONEY TORIBIO MD
[2019-03-17] MEDS: DEXTROSE 5%-0.45% SALINE 1,000 ML IV SCH ×3 (02:33→22:44)
[2019-03-17] MEDS: INSULIN SLIDING SCALE (NOVOLOG) 1 VIAL SQ SCH ×4 (06:29→23:00)
[2019-03-17] MEDS: PANTOPRAZOLE SODIUM 80 MG in SODIUM CHLORIDE 100 ML IVPB SCH ×3 (07:01→22:43)
[2019-03-17] MEDS ORDERED: ACETAMINOPHEN 1000 MG/100 ML VIAL (NON FORMULARY) IVPB PRN (08:03)
[2019-03-17 08:31] LABS: BASO % 0.1 % (0-2.0); EOS % 0.1 % (0-4.5); HEMATOCRIT 36.5 % (32.4-45.2); HEMOGLOBIN 12.2 GM/dL (10.7-15.3); LYMPH % 9.6 % (8-40); MCH 27.7 pg (25.7-33.7); MCHC 33.4 g/dl (32.0-36.0); MEAN CELL VOLUME 82.7 fl (80-96); MEAN PLT VOLUME 9.2 fl (7.5-11.1); NEUT % 81.2 % (42.8-82.8); PLATELET COUNT 173 K/MM3 (134-434); RBC 4.41 M/mm3 (3.60-5.2); RDW 13.9 % (11.6-15.6); WHITE BLOOD COUNT 13.5 K/mm3 (4.0-10.0)
[2019-03-17 08:33] LABS: ALBUMIN 2.9 g/dl (3.4-5.0); BILIRUBIN,TOTAL 0.6 mg/dL (0.2-1); BLOOD UREA NITROGEN 18.7 mg/dL (7-18); CREATININE 0.7 mg/dL (0.55-1.3); POTASSIUM 3.2 mmol/L (3.5-5.1); TOT PROT 5.4 g/dl (6.4-8.2)
--- NOTE | 2019-03-17 08:54 | PN ---
Progress Note, Physician Chief Complaint: episode of rectal bleeding after BM-small amount. No further abdominal pain. History of Present Illness: 78 y/o F with PMH of hypertension, hyperlipidemia, hypothyroidism and diabetes who presented to the ED after she experienced an acute onset of difficulty speaking, hypertension and headache. Symptoms have since resolved. In the ED, stroke protocol initiated and head CT negative. BP was elevated 200/ 90s - Current Medication List Current Medications: Active Medications Acetaminophen (Ofirmev Injection -) 1,000 mg IVPB Q6H PRN PRN Reason: PAIN LEVEL 1-5 Ceftriaxone Sodium 1 gm/ (Dextrose) 50 mls @ 200 mls/hr IVPB DAILY CHRIS; Protocol Dextrose/Sodium Chloride (D5-1/2ns -) 1,000 mls @ 75 mls/hr IV ASDIR CHRIS Metronidazole (Flagyl 500mg Premixed Ivpb -) 500 mg in 100 mls @ 100 mls/hr IVPB Q8H-IV CHRIS Pantoprazole Sodium 80 mg/ (Sodium Chloride) 100 mls @ 10 mls/hr IVPB Q10H CHRIS Insulin Aspart (Novolog Vial Sliding Scale -) 1 vial SQ ACHS CHRIS; Protocol Levothyroxine Sodium (Synthroid Injection -) 20 mcg IVPUSH DAILY CHRIS - Objective Vital Signs: Vital Signs Temperature 98.9 F 03/17/19 06:00 Pulse Rate 78 03/17/19 06:00 Respiratory Rate 20 03/17/19 06:00 Blood Pressure 125/54 L 03/17/19 06:00 O2 Sat by Pulse Oximetry (%) 95 03/16/19 09:00 Constitutional: Yes: Well Nourished, No Distress, Calm Eyes: Yes: WNL, Conjunctiva Clear HENT: Yes: WNL, Atraumatic, Normocephalic Neck: Yes: WNL, Supple, Trachea Midline Cardiovascular: Yes: WNL, Regular Rate and Rhythm Respiratory: Yes: WNL, Regular, CTA Bilaterally Gastrointestinal: Yes: Normal Bowel Sounds, Other (small amout rectal bleeding after BM) ...Rectal Exam: Yes: Guaiac Positive Genitourinary: Yes: WNL Breast(s): Yes: WNL Musculoskeletal: Yes: WNL Extremities: Yes: WNL Edema: No Labs: CBC, BMP 03/17/19 06:55 03/17/19 06:55 INR, PTT INR 0.99 (0.83-1.09) 03/15/19 20:55 Problem List - Problems (1) Diabetes Assessment/Plan: BCM AC/HS with novolog sliding scale diabetic diet Code(s): E11.9 - TYPE 2 DIABETES MELLITUS WITHOUT COMPLICATIONS (2) Headache Assessment/Plan: resolved tylenol prn Code(s): R51 - HEADACHE (3) Hyperlipidemia Assessment/Plan: c/w statin & [place] 3 low fat cholesterl diet Code(s): E78.5 - HYPERLIPIDEMIA, UNSPECIFIED (4) Hypertension Assessment/Plan: normotensive now c/w lisinipril/hctz Code(s): I10 - ESSENTIAL (PRIMARY) HYPERTENSION (5) TIA (transient ischemic attack) Assessment/Plan: symptoms Resolved Aspirin held secondary to GI bleeding-will restart when no s/s of bleeding Carotid dopplers show no evidence of hemodynamically significant stenosis TTE pending CT showed moderate atrophy, moderate to marked periventricular chronic microvascular ischemic changes Code(s): G45.9 - TRANSIENT CEREBRAL ISCHEMIC ATTACK, UNSPECIFIED (6) Rectal bleed Assessment/Plan: Rectal bleeding secondary to acute colitis, none noted today H/H stable Continue ceftriaxone, Flagyl for presumed infectious etiology plan for EGD/colonscopy Code(s): K62.5 - HEMORRHAGE OF ANUS AND RECTUM (7) Performance measure status Assessment/Plan: FEN IVF while NPO then resume diet monitor electrolytes/Hgb DVT no chemical AC Dispo mainatin as in patient full code discharge planning Code(s): NVY2193 - Visit type - Emergency Visit Emergency Visit: Yes ED Registration Date: 03/16/19 Care time: The patient presented to the Emergency Department on the above date and was hospitalized for further evaluation of their emergent condition. - New Patient This patient is new to me today: Yes Date on this admission: 03/18/19 - Critical Care Critical Care patient: No - Discharge Referral Referred to [facility] Med P.C.: No
[2019-03-17] MEDS ORDERED: LEVOTHYROXINE SODIUM 100 MCG VIAL IVPUSH SCH ×2 (10:00)
[2019-03-17] MEDS ORDERED: CEFTRIAXONE 1 GM in DEXTROSE 5%-WATER - 50 ML IVPB SCH (10:00)
[2019-03-17] MEDS ORDERED: MUPIROCIN 2% TOPICAL OINTMENT FOR DECOLONIZATION NS SCH (10:00)
[2019-03-17] MEDS ORDERED: cefTRIAXone SODIUM 1 GM VIAL ONE (10:56)
[2019-03-17] MEDS ORDERED: DEXTROSE 5%-WATER - 50 ML IVPB ONE (10:56)
[2019-03-17] MEDS: CEFTRIAXONE 1 GM in DEXTROSE 5%-WATER - 50 ML IVPB SCH (10:58)
[2019-03-17] MEDS ORDERED: BISACODYL 5 MG TABLET.DR (FP) PO ONE (11:32)
--- NOTE | 2019-03-17 11:32 | PN ---
Progress Note (short form) - Note Progress Note: Patient seen/examined in endo Reports had neurological sx prior to epigastric pain/retching, then epigastric/b /l LQ pain and multiple episodes of hematochezia CT with colitis from ascending to sigmoid, possible rectal involvement Patient reports has been improving since she has been here No diarrhea +FHx of colitis - son with UC Suspect ischemic colitis, but unusual to involve the right and possibly the rectum Will plan for colonoscopy tomorrow to further assess
[2019-03-17] MEDS ORDERED: LEVOTHYROXINE NA 25 MCG TABLET (FP) PO ONE (13:16)
[2019-03-17] MEDS ORDERED: POTASSIUM CHLORIDE TABS 20 MEQ TABLET.ER (FP) PO ONE (13:17)
[2019-03-17] MEDS: KCL 10 MEQ IVPB 10 MEQ/100 ML INFUS.BAG IVPB SCH (13:43)
[2019-03-17] MEDS ORDERED: METOCLOPRAMIDE HCL INJECTION 10 MG/2 ML VIAL IVPUSH PRN (14:50)
[2019-03-17] MEDS ORDERED: ONDANSETRON 4 MG/2 ML VIAL IVPUSH PRN (14:50)
--- NOTE | 2019-03-17 16:44 | PN ---
Progress Note (short form) - Note Progress Note: s: no cp sob palps dizzy Current Medications Generic Name Dose Route Start Last Admin Trade Name Freq PRN Reason Stop Dose Admin Acetaminophen 1,000 mg 03/17/19 08:03 03/17/19 15:02 Ofirmev Injection - IVPB 1,000 mg Q6H PRN Administration PAIN LEVEL 1-5 Ceftriaxone Sodium 1 gm/ 50 mls @ 200 mls/hr 03/17/19 10:00 03/17/19 10:58 Dextrose IVPB 200 mls/hr DAILY CHRIS Administration Protocol Dextrose/Sodium Chloride 1,000 mls @ 75 mls/hr 03/17/19 08:03 03/17/19 08:30 D5-1/2ns - IV 75 mls/hr ASDIR CHRIS Administration Metronidazole 500 mg in 100 mls @ 100 mls/hr 03/17/19 10:00 03/17/19 12:29 Flagyl 500mg Premixed Ivpb - IVPB 100 mls/hr Q8H-IV CHRIS Administration Pantoprazole Sodium 80 mg/ 100 mls @ 10 mls/hr 03/17/19 13:00 03/17/19 13:43 Sodium Chloride IVPB Not Given Q10H CHRIS 8 MG/HR Insulin Aspart 1 vial 03/17/19 11:00 03/17/19 12:29 Novolog Vial Sliding Scale - SQ Not Given ACHS CHRIS Protocol Levothyroxine Sodium 25 mcg 03/18/19 07:00 Synthroid - PO DAILY@0700 CHRIS Metoclopramide HCl 10 mg 03/17/19 14:50 Reglan Injection - IVPUSH Q6H PRN NAUSEA AND/OR VOMITING Ondansetron HCl 4 mg 03/17/19 14:50 03/17/19 15:16 Zofran Injection IVPUSH 4 mg Q8H PRN Administration NAUSEA Polyethylene Glycol/Electrolytes 4,000 ml 03/17/19 17:00 Golytely Solution - PO 03/17/19 17:01 ONCE ONE Vital Signs Period Temp Pulse Resp BP Sys/Valenzuela Pulse Ox Last 24 Hr 98.2 F-98.9 F 73-89 18-20 105-136/47-87 95 Constitutional: Yes: No Distress, Calm Eyes: Yes: Conjunctiva Clear HENT: Yes: Atraumatic Neck: Yes: Supple Respiratory: Yes: CTA Bilaterally Gastrointestinal: Yes: Soft (No rebound or guarding) Cardiovascular: Yes: Regular Rate and Rhythm JVD: No Carotid Bruit: No PMI: Non-Displaced Heart Sounds: Yes: S1, S2 (RRR) Edema: No Peripheral Pulses WNL: Yes Neurological: Yes: Alert, Oriented CBC, BMP 03/17/19 06:55 03/17/19 06:55 NSR 74bpm, left axis. Inc RBBB, Poor R wave Echo: Pending Imaging - Results Cat Scan: Report Reviewed EKG: Image Reviewed Assessment/Plan IMP: TIA Acute GI bleed (patient on chronic full dose ASA) HTN DM REC: 2. GI evaluation 3. Hold ASA and BP meds in setting of acute GI Bleed. 4. Echo and carotid US pending 6. Timing of endoscopic evaluation as per GI/Neuro.
[2019-03-17] MEDS ORDERED: PEG 3350/NA SULF BICARB CL/KCL 4000 ML SOLN.RECON PO ONE (17:00)
--- NOTE | 2019-03-17 17:01 | ECHO ---
Name: YANE GRIMM Exam:Adult Echocardiogram Study Date: 03/17/2019 09:52 AM Age: 78 yrs Reason For Study: tia Height: 64 in Weight: 193 lb BSA: 1.9 m2 MMode/2D Measurements & Calculations IVSd: 0.99 cm Ao root diam: 2.5 cm LVIDd: 4.2 cm LA dimension: 3.9 cm LVIDs: 2.8 cm LVPWd: 0.93 cm EDV(Teich): 79.4 ml LVOT diam: 2.0 cm ESV(Teich): 30.8 ml LAV (MOD-bp): 61.8 ml Doppler Measurements & Calculations MV E max skip: 80.5 cm/sec Ao V2 max: 180.5 cm/sec MV A max skip: 95.1 cm/sec Ao max P.0 mmHg MV E/A: 0.85 MV dec time: 0.24 sec MIKALA(V,D): 2.3 cm2 LV V1 max P.3 mmHg PA V2 max: 89.6 cm/sec LV V1 max: 135.3 cm/sec PA max P.2 mmHg Med Peak E' Skip: 6.3 cm/sec PI Vmax: 118.1 cm/sec Med E/e': 12.8 Lat Peak E' Skip: 8.5 cm/sec Lat E/e': 9.5 Procedure A complete two-dimensional transthoracic echocardiogram was performed (2D, M-mode, Doppler and color flow Doppler). Left Ventricle The left ventricle is normal in size. Left ventricular systolic function is normal. Ejection Fraction = 60- 65%. Grade I diastolic dysfunction, (abnormal relaxation pattern). Ratio E/E'= 13. No regional wall m otion abnormalities noted. Right Ventricle The right ventricle is normal size. The right ventricular systolic function is normal. Atria The left atrial size is normal. LA volume index is 32 ml/m2. Right atrial size is normal. Mitral Valve There is mild mitral annular calcification. There is no mitral regurgitation noted. Tricuspid Valve The tricuspid valve is normal in structure and function. No tricuspid regurgitation. Aortic Valve There is mild aortic sclerosis.;. No aortic regurgitation is present. Pulmonic Valve The pulmonic valve is not well visualized. Mild pulmonic valvular regurgitation. Great Vessels The aortic root is normal size. Pericardium/Pleura There is no pericardial effusion. Interpretation Summary The left ventricle is normal in size. Left ventricular systolic function is normal. No regional wall motion abnormalities noted. Ejection Fraction = 60-65%. Grade I diastolic dysfunction, (abnormal relaxation pattern). Ratio E/E'= 13 The right ventricular systolic function is normal. The left atrial size is normal. Right atrial size is normal. There is mild mitral annular calcification. There is mild aortic sclerosis. Mild pulmonic valvular regurgitation. There is no pericardial effusion. Roberto Doan MD 03/17/2019 05:00 PM
[2019-03-17] MEDS ORDERED: PT OWN MED DRAWER 7, Y5N ONE (18:48)
[2019-03-18] MEDS: INSULIN SLIDING SCALE (NOVOLOG) 1 VIAL SQ SCH ×4 (06:01→21:05)
[2019-03-18] MEDS: LEVOTHYROXINE NA 25 MCG TABLET (FP) PO SCH (06:02)
--- NOTE | 2019-03-18 12:33 | PN ---
Progress Note, Physician Chief Complaint: seen and examined s/p colonoscopy Denies CP, SOB, palps - Current Medication List Current Medications: Active Medications Acetaminophen (Ofirmev Injection -) 1,000 mg IVPB Q6H PRN PRN Reason: PAIN LEVEL 1-5 Last Admin: 03/17/19 15:02 Dose: 1,000 mg Ceftriaxone Sodium 1 gm/ (Dextrose) 50 mls @ 200 mls/hr IVPB DAILY [facility]; Protocol Last Admin: 03/17/19 10:58 Dose: 200 mls/hr Dextrose/Sodium Chloride (D5-1/2ns -) 1,000 mls @ 75 mls/hr IV ASDIR CHRIS Last Admin: 03/17/19 22:44 Dose: 75 mls/hr Metronidazole (Flagyl 500mg Premixed Ivpb -) 500 mg in 100 mls @ 100 mls/hr IVPB Q8H-IV CHRIS Last Admin: 03/18/19 01:51 Dose: 100 mls/hr Pantoprazole Sodium 80 mg/ (Sodium Chloride) 100 mls @ 10 mls/hr IVPB Q10H [facility] Last Admin: 03/17/19 22:43 Dose: 10 mls/hr Insulin Aspart (Novolog Vial Sliding Scale -) 1 vial SQ ACHS [facility]; Protocol Last Admin: 03/18/19 06:01 Dose: Not Given Levothyroxine Sodium (Synthroid -) 25 mcg PO DAILY@0700 [facility] Last Admin: 03/18/19 06:02 Dose: Not Given Metoclopramide HCl (Reglan Injection -) 10 mg IVPUSH Q6H PRN PRN Reason: NAUSEA AND/OR VOMITING Ondansetron HCl (Zofran Injection) 4 mg IVPUSH Q8H PRN PRN Reason: NAUSEA Last Admin: 03/17/19 15:16 Dose: 4 mg - Objective Vital Signs: Vital Signs Temperature 98.3 F 03/18/19 10:00 Pulse Rate 77 03/18/19 10:00 Respiratory Rate 18 03/18/19 10:00 Blood Pressure 108/73 03/18/19 10:00 O2 Sat by Pulse Oximetry (%) 95 03/17/19 09:00 Constitutional: Yes: No Distress Cardiovascular: Yes: Regular Rate and Rhythm Respiratory: Yes: CTA Bilaterally Gastrointestinal: Yes: Soft (NT, no rebound or guarding.) Edema: No Neurological: Yes: Alert, Oriented Labs: CBC, BMP 03/17/19 06:55 03/17/19 06:55 INR, PTT INR 0.99 (0.83-1.09) 03/15/19 20:55 Assessment/Plan Assessment/Plan IMP: TIA Acute GI bleed (patient on chronic full dose ASA)- secondary to colitis HTN DM Echo and carotid US unrevealing REC: 1. GI evaluation now s/p Colonoscopy- further reccs as per GI. 2. Hold ASA and BP meds in setting of acute GI Bleed, to resume when deemed safe from GI standpoint 3. Would benefit from prison outpt holter/ extended outpt rhythm monitor to r /o occult AF 4. Close outpt f/u Neuro and Cardiology recommended.
--- NOTE | 2019-03-18 13:10 | PN ---
Progress Note (short form) - Note Progress Note: Colonoscopy complete. Report left in procedural section of physical chart and will be scanned into [employer].
[2019-03-18] MEDS ORDERED: DEXTROSE 5%-WATER - 50 ML IVPB ONE (13:56)
[2019-03-18] MEDS ORDERED: cefTRIAXone SODIUM 1 GM VIAL ONE (13:56)
[2019-03-18] MEDS: CEFTRIAXONE 1 GM in DEXTROSE 5%-WATER - 50 ML IVPB SCH (14:01)
[2019-03-18] MEDS: PANTOPRAZOLE SODIUM 80 MG in SODIUM CHLORIDE 100 ML IVPB SCH (14:01)
--- NOTE | 2019-03-18 14:01 | PN ---
Progress Note, Physician - Current Medication List Current Medications: Active Medications Acetaminophen (Ofirmev Injection -) 1,000 mg IVPB Q6H PRN PRN Reason: PAIN LEVEL 1-5 Last Admin: 03/17/19 15:02 Dose: 1,000 mg Ceftriaxone Sodium 1 gm/ (Dextrose) 50 mls @ 200 mls/hr IVPB DAILY [facility]; Protocol Last Admin: 03/17/19 10:58 Dose: 200 mls/hr Dextrose/Sodium Chloride (D5-1/2ns -) 1,000 mls @ 75 mls/hr IV ASDIR CHRIS Last Admin: 03/17/19 22:44 Dose: 75 mls/hr Metronidazole (Flagyl 500mg Premixed Ivpb -) 500 mg in 100 mls @ 100 mls/hr IVPB Q8H-IV CHRIS Last Admin: 03/18/19 01:51 Dose: 100 mls/hr Pantoprazole Sodium 80 mg/ (Sodium Chloride) 100 mls @ 10 mls/hr IVPB Q10H [facility] Last Admin: 03/17/19 22:43 Dose: 10 mls/hr Insulin Aspart (Novolog Vial Sliding Scale -) 1 vial SQ ACHS [facility]; Protocol Last Admin: 03/18/19 06:01 Dose: Not Given Levothyroxine Sodium (Synthroid -) 25 mcg PO DAILY@0700 [facility] Last Admin: 03/18/19 06:02 Dose: Not Given Metoclopramide HCl (Reglan Injection -) 10 mg IVPUSH Q6H PRN PRN Reason: NAUSEA AND/OR VOMITING Ondansetron HCl (Zofran Injection) 4 mg IVPUSH Q8H PRN PRN Reason: NAUSEA Last Admin: 03/17/19 15:16 Dose: 4 mg - Objective Vital Signs: Vital Signs Temperature 98.8 F 03/18/19 13:34 Pulse Rate 69 03/18/19 13:34 Respiratory Rate 20 03/18/19 13:34 Blood Pressure 116/53 L 03/18/19 13:34 O2 Sat by Pulse Oximetry (%) 99 03/18/19 13:34 Labs: CBC, BMP 03/17/19 06:55 03/17/19 06:55 INR, PTT INR 0.99 (0.83-1.09) 03/15/19 20:55
[2019-03-18] MEDS: DEXTROSE 5%-0.45% SALINE 1,000 ML IV SCH ×2 (14:02→15:30)
--- NOTE | 2019-03-18 14:52 | PN ---
Physical Exam: SUBJECTIVE: Patient seen and examined at the bedside. feels well s/p colonscopy. OBJECTIVE: Patient is an 78 year old female with a significant past medical history of hypertension, hyperlipidemia, hypothyroidism and diabetes. Patient presented to the ED after she experienced an acute onset of difficulty speaking, hypertension and headache. patient followed by neurologist during hospital stay for workup of TIA. She was on full dose ASA 324 for apx 10 yrs per patient. During hospital stay, she developed acute abdominal pain and had episodes of GI bleed and was found to have acute colitis. She is s/p colonoscopy today. Vital Signs Period Temp Pulse Resp BP Sys/Valenzuela Pulse Ox Last 24 Hr 98.3 F-99.5 F 66-83 16-20 99-142/46-73 98-119 GENERAL: The patient is awake, alert, and fully oriented, in no acute distress. HEAD: Normal with no signs of trauma. EYES: PERRL, extraocular movements intact, sclera anicteric, conjunctiva clear. No ptosis. ENT: Ears normal, nares patent, oropharynx clear without exudates, moist mucous membranes. NECK: Trachea midline, full range of motion, supple. LUNGS: Breath sounds equal, clear to auscultation bilaterally HEART: Regular rate and rhythm, S1, S2 without murmur, rub or gallop. ABDOMEN: Soft, nontender, nondistended, normoactive bowel sounds, no guarding, no rebound, no hepatosplenomegaly, no masses. EXTREMITIES: no edema. NEUROLOGICAL: Normal speech, gait not observed. PSYCH: Normal mood, normal affect. SKIN: Warm, dry, normal turgor, no rashes or lesions noted Laboratory Results - last 24 hr 03/17/19 03/17/19 03/18/19 17:35 22:58 05:32 POC Glucometer 133 111 138 03/18/19 11:32 POC Glucometer 87 Active Medications Generic Name Dose Route Start Last Admin Trade Name Freq PRN Reason Stop Dose Admin Acetaminophen 1,000 mg 03/17/19 08:03 03/17/19 15:02 Ofirmev Injection - IVPB 1,000 mg Q6H PRN Administration PAIN LEVEL 1-5 Ceftriaxone Sodium 1 gm/ 50 mls @ 200 mls/hr 03/17/19 10:00 03/18/19 14:01 Dextrose IVPB 200 mls/hr DAILY CHRIS Administration Protocol Dextrose/Sodium Chloride 1,000 mls @ 75 mls/hr 03/17/19 08:03 03/18/19 14:02 D5-1/2ns - IV Not Given ASDIR CHRIS Metronidazole 500 mg in 100 mls @ 100 mls/hr 03/17/19 10:00 03/18/19 14:01 Flagyl 500mg Premixed Ivpb - IVPB 100 mls/hr Q8H-IV CHRIS Administration Pantoprazole Sodium 80 mg/ 100 mls @ 10 mls/hr 03/17/19 13:00 03/18/19 14:01 Sodium Chloride IVPB 10 mls/hr Q10H CHRIS Administration 8 MG/HR Insulin Aspart 1 vial 03/17/19 11:00 03/18/19 14:00 Novolog Vial Sliding Scale - SQ Not Given ACHS CHRIS Protocol Levothyroxine Sodium 25 mcg 03/18/19 07:00 03/18/19 06:02 Synthroid - PO Not Given DAILY@0700 CHRIS Metoclopramide HCl 10 mg 03/17/19 14:50 Reglan Injection - IVPUSH Q6H PRN NAUSEA AND/OR VOMITING Ondansetron HCl 4 mg 03/17/19 14:50 03/17/19 15:16 Zofran Injection IVPUSH 4 mg Q8H PRN Administration NAUSEA ASSESSMENT/PLAN: Problem List - Problems (1) Rectal bleed Assessment/Plan: developed acute gi bleed, found to have acute colitis on iv ceftriaxone and flagyl s/p colonoscopy today advance diet per GI Code(s): K62.5 - HEMORRHAGE OF ANUS AND RECTUM (2) TIA (transient ischemic attack) Assessment/Plan: presents to the the ED with concerning symptoms of TIA per patient had a previous TIA and put on full dose aspirin head ct negative during hospital stay developed a GI bleed and ASA stopped seen by neurology, notes reviewed Code(s): G45.9 - TRANSIENT CEREBRAL ISCHEMIC ATTACK, UNSPECIFIED (3) Headache Assessment/Plan: head ct negative Code(s): R51 - HEADACHE (4) Hyperlipidemia Assessment/Plan: lipid panel within normal findings continue home statin Code(s): E78.5 - HYPERLIPIDEMIA, UNSPECIFIED (5) Diabetes Assessment/Plan: on metformin 750mg daily at home. monitor bgms hmga1c 6.3 Code(s): E11.9 - TYPE 2 DIABETES MELLITUS WITHOUT COMPLICATIONS (6) Hypertension Assessment/Plan: continue home meds monitor bp q4 Code(s): I10 - ESSENTIAL (PRIMARY) HYPERTENSION Visit type - Emergency Visit Emergency Visit: Yes ED Registration Date: 03/16/19 Care time: The patient presented to the Emergency Department on the above date and was hospitalized for further evaluation of their emergent condition. - New Patient This patient is new to me today: No - Critical Care Critical Care patient: No - Discharge Referral Referred to [facility] No
[2019-03-18] MEDS ORDERED: INSULIN (NOVOLOG) ASPART 100 UNITS/ML 10ML VIAL ONE (20:36)
[2019-03-19] MEDS: PANTOPRAZOLE SODIUM 80 MG in SODIUM CHLORIDE 100 ML IVPB SCH ×3 (02:12→06:26)
[2019-03-19] MEDS: LEVOTHYROXINE NA 25 MCG TABLET (FP) PO SCH (06:26)
[2019-03-19] MEDS: INSULIN SLIDING SCALE (NOVOLOG) 1 VIAL SQ SCH ×4 (06:26→21:19)
[2019-03-19] MEDS: DEXTROSE 5%-0.45% SALINE 1,000 ML IV SCH (07:45)
[2019-03-19] MEDS ORDERED: cefTRIAXone SODIUM 1 GM VIAL ONE (09:35)
[2019-03-19] MEDS ORDERED: DEXTROSE 5%-WATER - 50 ML IVPB ONE (09:36)
[2019-03-19] MEDS: CEFTRIAXONE 1 GM in DEXTROSE 5%-WATER - 50 ML IVPB SCH (12:13)
[2019-03-19] MEDS: PANTOPRAZOLE 40 MG TABLET (FP) PO SCH (13:55)
--- NOTE | 2019-03-19 14:33 | PN.GI ---
GI Progress Note Subjective: Pt seen/examined at bedside feeling better, sitting in chair, tolerating clear liquid diet. Reports some gas/bloating, denies abdominal pain, n/v. No further bleeding reported. - Objective Vital Signs: Vital Signs Temperature 97.8 F 03/19/19 11:00 Pulse Rate 83 03/19/19 11:00 Respiratory Rate 20 03/19/19 11:00 Blood Pressure 159/68 03/19/19 11:00 O2 Sat by Pulse Oximetry (%) 99 03/18/19 21:00 Constitutional: Well Nourished, No Distress, Calm Cardiovascular: Yes: WNL, Regular Rate and Rhythm Respiratory: Yes: WNL, Regular, CTA Bilaterally ...Palpate: Yes: Other (abd soft, nt, nd) Labs: CBC, BMP 03/17/19 06:55 03/17/19 06:55 INR, PTT INR 0.99 (0.83-1.09) 03/15/19 20:55 Problem List - Problems (1) Rectal bleed Assessment/Plan: 78yo female h/o HTN, hiatal hernia repair presenting initially with difficulty speaking/word findings with episode of hematochezia s/p colonoscopy revealing eythema/ulcerations at sigmoid to hepatic flexure likely ischemic colitis. Clinically improving. -Advance diet as tolerated -Avoid hypotension -Change to PPI daily -Continue flagyl/rocephin -Attempted to contact radiologist to address vasculature/patency, was told to call back after 4pm to speak with Dr. Shirley -Further recommendations/testing per neuro and cardiology and risks/benefits to be weighed regarding antiplatelet therapies. Pt states she was on asa 325mg at home, would need to clarify if high dose is indicated prior to discharge Discussed with medicine team Code(s): K62.5 - HEMORRHAGE OF ANUS AND RECTUM
--- NOTE | 2019-03-19 15:15 | PN ---
Progress Note (short form) - Note Progress Note: s: no cp sob palps dizzy Current Medications Generic Name Dose Route Start Last Admin Trade Name Freq PRN Reason Stop Dose Admin Acetaminophen 1,000 mg 03/17/19 08:03 03/17/19 15:02 Ofirmev Injection - IVPB 1,000 mg Q6H PRN Administration PAIN LEVEL 1-5 Ceftriaxone Sodium 1 gm/ 50 mls @ 200 mls/hr 03/17/19 10:00 03/19/19 12:13 Dextrose IVPB 200 mls/hr DAILY CHRIS Administration Protocol Dextrose/Sodium Chloride 1,000 mls @ 75 mls/hr 03/17/19 08:03 03/19/19 07:45 D5-1/2ns - IV 75 mls/hr ASDIR CHRIS Administration Metronidazole 500 mg in 100 mls @ 100 mls/hr 03/17/19 10:00 03/19/19 11:09 Flagyl 500mg Premixed Ivpb - IVPB 100 mls/hr Q8H-IV CHRIS Administration Insulin Aspart 1 vial 03/17/19 11:00 03/19/19 12:39 Novolog Vial Sliding Scale - SQ Not Given ACHS CHRIS Protocol Levothyroxine Sodium 25 mcg 03/18/19 07:00 03/19/19 06:26 Synthroid - PO 25 mcg DAILY@0700 CHRIS Administration Metoclopramide HCl 10 mg 03/17/19 14:50 Reglan Injection - IVPUSH Q6H PRN NAUSEA AND/OR VOMITING Ondansetron HCl 4 mg 03/17/19 14:50 03/17/19 15:16 Zofran Injection IVPUSH 4 mg Q8H PRN Administration NAUSEA Pantoprazole Sodium 40 mg 03/19/19 13:45 03/19/19 13:55 Protonix - PO 40 mg DAILY CHRIS Administration Vital Signs Period Temp Pulse Resp BP Sys/Valenzuela Pulse Ox Last 24 Hr 97.8 F-99 F 60-83 20-20 119-159/52-69 99-99 Constitutional: Yes: No Distress, Calm Eyes: Yes: Conjunctiva Clear HENT: Yes: Atraumatic Neck: Yes: Supple Respiratory: Yes: CTA Bilaterally Gastrointestinal: Yes: Soft (No rebound or guarding) Cardiovascular: Yes: Regular Rate and Rhythm JVD: No Carotid Bruit: No PMI: Non-Displaced Heart Sounds: Yes: S1, S2 (RRR) Edema: No Peripheral Pulses WNL: Yes Neurological: Yes: Alert, Oriented NSR 74bpm, left axis. Inc RBBB, Poor R wave Imaging - Results Cat Scan: Report Reviewed EKG: Image Reviewed IMP: TIA Acute GI bleed (patient on chronic full dose ASA)- secondary to colitis HTN DM REC: 1. GI evaluation now s/p Colonoscopy- further recs as per GI. 2. Hold ASA and BP meds in setting of acute GI Bleed, to resume when deemed safe from GI standpoint 3. Echo and carotid US unrevealing 4. Would benefit from [facility] outpt holter/ extended outpt rhythm monitor to r /o occult AF 5. Close outpt f/u Neuro and Cardiology recommended.
[2019-03-19 15:18] LABS: BASO % 0.4 % (0-2.0); EOS % 1.4 % (0-4.5); HEMATOCRIT 34.2 % (32.4-45.2); HEMOGLOBIN 11.5 GM/dL (10.7-15.3); LYMPH % 21.2 % (8-40); MCH 27.9 pg (25.7-33.7); MCHC 33.8 g/dl (32.0-36.0); MEAN CELL VOLUME 82.5 fl (80-96); MEAN PLT VOLUME 8.3 fl (7.5-11.1); MONO % 9.9 % (3.8-10.2); NEUT % 67.1 % (42.8-82.8); PLATELET COUNT 207 K/MM3 (134-434); RBC 4.14 M/mm3 (3.60-5.2); RDW 13.9 % (11.6-15.6); WHITE BLOOD COUNT 7.6 K/mm3 (4.0-10.0)
--- NOTE | 2019-03-19 15:58 | PATH ---
Surgical Pathology Report Patient Name: YANE GRIMM [facility]. Rec. #: [id number] /Age/Gender: 1940 (Age: 78) / F Account: [id number] Location: [facility] MED/SURG Taken: 03/18/2019 Received: 03/18/2019 Reported: 03/19/2019 Physicians: Raphael Flowers D.O. Specimen(s) Received A: BX PROXIMAL TRANSVERSE COLON B: BX SIGMOID COLON Clinical History Colitis Postoperative diagnosis: Diverticulosis, colitis Final Diagnosis A. PROXIMAL TRANSVERSE, BIOPSY: COLONIC MUCOSA SHOWING FEATURES SUGGESTIVE OF ISCHEMIC COLITIS WITH FULL-THICKNESS MUCOSAL NECROSIS AND PSEUDOMEMBRANE FORMATION. (SEE NOTE) B. SIGMOID COLON, BIOPSY: COLONIC MUCOSA SHOWING FULL-THICKNESS NECROSIS WITH PSEUDOMEMBRANE FORMATION. (SEE NOTE). Note: The overall findings are compatible with ischemic colitis with pseudomembrane formation, however pseudomembranous (C. difficile) colitis cannot be excluded on histologic grounds alone. Correlation with clinical and endoscopic findings along with stool studies is suggested. Electronically Signed Mima Lawson M.D. Gross Description A. Received in formalin, labeled "biopsy proximal transverse" are 4 cueva, irregular portions of soft tissue ranging from 0.1-0.4 cm. in greatest dimension. The specimens are submitted in toto in one cassette. B. Received in formalin, labeled "biopsy sigmoid colon" is a cueva, irregular portion of soft tissue measuring 0.3 cm. in greatest dimension. The specimen is submitted in toto in one cassette. 03/18/2019 saudi03/18/2019
[2019-03-19 16:23] LABS: ALBUMIN 2.7 g/dl (3.4-5.0); BILIRUBIN,TOTAL 0.3 mg/dL (0.2-1); BLOOD UREA NITROGEN 7.8 mg/dL (7-18); CALCIUM 8.5 mg/dL (8.5-10.1); CREATININE 0.7 mg/dL (0.55-1.3); MAGNESIUM 1.8 mg/dL (1.8-2.4); TOT PROT 5.4 g/dl (6.4-8.2)
[2019-03-19 16:26] LABS: POTASSIUM 2.9 mmol/L (3.5-5.1)
[2019-03-19] MEDS: KCL 10 MEQ IVPB 10 MEQ/100 ML INFUS.BAG IVPB SCH ×2 (16:47→17:30)
[2019-03-19] MEDS ORDERED: KCL 10 MEQ IVPB 10 MEQ/100 ML INFUS.BAG IVPB SCH (17:00)
[2019-03-19] MEDS ORDERED: POTASSIUM CHLORIDE TABS 20 MEQ TABLET.ER (FP) PO ONE ×3 (17:11→22:07)
--- NOTE | 2019-03-19 17:23 | PN ---
Physical Exam: SUBJECTIVE: Patient seen and examined OBJECTIVE: Patient is an 78 year old female with a significant past medical history of hypertension, hyperlipidemia, hypothyroidism and diabetes. Patient presented to the ED after she experienced an acute onset of difficulty speaking, hypertension and headache. patient followed by neurologist during hospital stay for workup of TIA. She was on full dose ASA 324 for apx 10 yrs per patient. During hospital stay, she developed acute abdominal pain and had episodes of GI bleed and was found to have acute colitis. She is s/p colonoscopy on 03/18/19 which showed ischemic colitis on transverse colon, diverticulosis and internal hemorroids. K is 2.9, to be repleted, but she is refusing K riders Vital Signs Period Temp Pulse Resp BP Sys/Valenzuela Pulse Ox Last 24 Hr 97.8 F-99 F 60-83 20-20 119-159/51-69 99-99 GENERAL: The patient is awake, alert, and fully oriented, in no acute distress. HEAD: Normal with no signs of trauma. EYES: PERRL, extraocular movements intact, sclera anicteric, conjunctiva clear. No ptosis. ENT: Ears normal, nares patent, oropharynx clear without exudates, moist mucous membranes. NECK: Trachea midline, full range of motion, supple. LUNGS: Breath sounds equal, clear to auscultation bilaterally HEART: Regular rate and rhythm, S1, S2 without murmur, rub or gallop. ABDOMEN: Soft, nontender, nondistended, normoactive bowel sounds, no guarding, no rebound, no hepatosplenomegaly, no masses. EXTREMITIES: no edema. NEUROLOGICAL: Normal speech, gait not observed. PSYCH: Normal mood, normal affect. SKIN: Warm, dry, normal turgor, no rashes or lesions noted Laboratory Results - last 24 hr 03/15/19 03/18/19 03/19/19 20:55 20:58 06:23 WBC RBC Hgb Hct MCV MCH MCHC RDW Plt Count MPV Absolute Neuts (auto) Neutrophils % Lymphocytes % Monocytes % Eosinophils % Basophils % Nucleated RBC % Sodium Potassium Chloride Carbon Dioxide Anion Gap BUN Creatinine Est GFR (CKD-EPI)AfAm Est GFR (CKD-EPI)NonAf POC Glucometer 101 93 Random Glucose Calcium Magnesium Total Bilirubin AST ALT Alkaline Phosphatase Total Protein Albumin Crossmatch See Detail 03/19/19 03/19/19 03/19/19 12:37 14:50 14:50 WBC 7.6 RBC 4.14 Hgb 11.5 Hct 34.2 MCV 82.5 MCH 27.9 MCHC 33.8 RDW 13.9 Plt Count 207 MPV 8.3 Absolute Neuts (auto) 5.1 Neutrophils % 67.1 Lymphocytes % 21.2 D Monocytes % 9.9 Eosinophils % 1.4 D Basophils % 0.4 D Nucleated RBC % 0 Sodium 138 Potassium 2.9 L* Chloride 103 Carbon Dioxide 30 Anion Gap 5 L BUN 7.8 Creatinine 0.7 Est GFR (CKD-EPI)AfAm 94.84 Est GFR (CKD-EPI)NonAf 81.83 POC Glucometer 105 Random Glucose 130 H Calcium 8.5 Magnesium 1.8 Total Bilirubin 0.3 AST 15 ALT 25 Alkaline Phosphatase 64 Total Protein 5.4 L Albumin 2.7 L Crossmatch 03/19/19 16:54 WBC RBC Hgb Hct MCV MCH MCHC RDW Plt Count MPV Absolute Neuts (auto) Neutrophils % Lymphocytes % Monocytes % Eosinophils % Basophils % Nucleated RBC % Sodium Potassium Chloride Carbon Dioxide Anion Gap BUN Creatinine Est GFR (CKD-EPI)AfAm Est GFR (CKD-EPI)NonAf POC Glucometer 106 Random Glucose Calcium Magnesium Total Bilirubin AST ALT Alkaline Phosphatase Total Protein Albumin Crossmatch Active Medications Generic Name Dose Route Start Last Admin Trade Name Jose Robertoq PRN Reason Stop Dose Admin Acetaminophen 1,000 mg 03/17/19 08:03 03/17/19 15:02 Ofirmev Injection - IVPB 1,000 mg Q6H PRN Administration PAIN LEVEL 1-5 Ceftriaxone Sodium 1 gm/ 50 mls @ 200 mls/hr 03/17/19 10:00 03/19/19 12:13 Dextrose IVPB 200 mls/hr DAILY CHRIS Administration Protocol Metronidazole 500 mg in 100 mls @ 100 mls/hr 03/17/19 10:00 03/19/19 11:09 Flagyl 500mg Premixed Ivpb - IVPB 100 mls/hr Q8H-IV CHRIS Administration Insulin Aspart 1 vial 03/17/19 11:00 03/19/19 16:57 Novolog Vial Sliding Scale - SQ Not Given ACHS CHRIS Protocol Levothyroxine Sodium 25 mcg 03/18/19 07:00 03/19/19 06:26 Synthroid - PO 25 mcg DAILY@0700 CHRIS Administration Metoclopramide HCl 10 mg 03/17/19 14:50 Reglan Injection - IVPUSH Q6H PRN NAUSEA AND/OR VOMITING Ondansetron HCl 4 mg 03/17/19 14:50 03/17/19 15:16 Zofran Injection IVPUSH 4 mg Q8H PRN Administration NAUSEA Pantoprazole Sodium 40 mg 03/19/19 13:45 03/19/19 13:55 Protonix - PO 40 mg DAILY CHRIS Administration Potassium Chloride 20 meq 03/19/19 21:00 K-Dur - PO 03/19/19 21:01 ONCE ONE ASSESSMENT/PLAN: Problem List - Problems (1) Rectal bleed Assessment/Plan: developed acute gi bleed, and found to have acute colitis colonoscopy 03/18: diverticulosis, ischemic colitis and internal hemorroids on iv ceftriaxone and flagyl advance diet per GI and monitor Code(s): K62.5 - HEMORRHAGE OF ANUS AND RECTUM (2) TIA (transient ischemic attack) Assessment/Plan: presents to the the ED with concerning symptoms of TIA per patient had a previous TIA and put on full dose aspirin head ct negative during hospital stay developed a GI bleed and ASA stopped seen by neurology, notes reviewed followed by cardiology Code(s): G45.9 - TRANSIENT CEREBRAL ISCHEMIC ATTACK, UNSPECIFIED (3) Headache Assessment/Plan: head ct negative Code(s): R51 - HEADACHE (4) Hyperlipidemia Assessment/Plan: lipid panel within normal findings continue home statin Code(s): E78.5 - HYPERLIPIDEMIA, UNSPECIFIED (5) Diabetes Assessment/Plan: on metformin 750mg daily at home. monitor bgms hmga1c 6.3 Code(s): E11.9 - TYPE 2 DIABETES MELLITUS WITHOUT COMPLICATIONS (6) Hypertension Assessment/Plan: continue home meds monitor bp q4 Code(s): I10 - ESSENTIAL (PRIMARY) HYPERTENSION Visit type - Emergency Visit Emergency Visit: Yes ED Registration Date: 03/16/19 Care time: The patient presented to the Emergency Department on the above date and was hospitalized for further evaluation of their emergent condition. - New Patient This patient is new to me today: No - Critical Care Critical Care patient: No - Discharge Referral Referred to [facility] Med [facility] No
[2019-03-20] MEDS: INSULIN SLIDING SCALE (NOVOLOG) 1 VIAL SQ SCH ×4 (06:12→22:52)
[2019-03-20] MEDS: LEVOTHYROXINE NA 25 MCG TABLET (FP) PO SCH (06:12)
[2019-03-20] MEDS ORDERED: PT OWN MED DRAWER 7, Y5N ONE (06:32)
[2019-03-20 08:05] LABS: BASO % 0.7 % (0-2.0); EOS % 1.8 % (0-4.5); HEMATOCRIT 33.2 % (32.4-45.2); HEMOGLOBIN 11.2 GM/dL (10.7-15.3); LYMPH % 23.8 % (8-40); MCHC 33.8 g/dl (32.0-36.0); MEAN CELL VOLUME 82.8 fl (80-96); MEAN PLT VOLUME 8.6 fl (7.5-11.1); MONO % 11.1 % (3.8-10.2); NEUT % 62.6 % (42.8-82.8); PLATELET COUNT 206 K/MM3 (134-434); RBC 4.01 M/mm3 (3.60-5.2); RDW 14.4 % (11.6-15.6); WHITE BLOOD COUNT 6.5 K/mm3 (4.0-10.0)
[2019-03-20 08:40] LABS: ALBUMIN 2.5 g/dl (3.4-5.0); BILIRUBIN,TOTAL 0.3 mg/dL (0.2-1); BLOOD UREA NITROGEN 6.6 mg/dL (7-18); CALCIUM 8.5 mg/dL (8.5-10.1); CREATININE 0.7 mg/dL (0.55-1.3); MAGNESIUM 1.9 mg/dL (1.8-2.4); POTASSIUM 4.1 mmol/L (3.5-5.1); TOT PROT 4.6 g/dl (6.4-8.2)
[2019-03-20] MEDS ORDERED: DEXTROSE 5%-WATER - 50 ML IVPB ONE (09:10)
[2019-03-20] MEDS ORDERED: cefTRIAXone SODIUM 1 GM VIAL ONE (09:10)
[2019-03-20] MEDS: CEFTRIAXONE 1 GM in DEXTROSE 5%-WATER - 50 ML IVPB SCH (09:14)
[2019-03-20] MEDS: PANTOPRAZOLE 40 MG TABLET (FP) PO SCH (09:14)
--- NOTE | 2019-03-20 10:06 | PN ---
Physical Exam: SUBJECTIVE: Patient seen and examined at the bedside. feels well, denies any abdominal pain. had a loose bm last night, non bloody. tolerating diet. OBJECTIVE: Patient is an 78 year old female with a significant past medical history of hypertension, hyperlipidemia, hypothyroidism and diabetes. Patient presented to the ED after she experienced an acute onset of difficulty speaking, hypertension and headache. patient followed by neurologist during hospital stay for workup of TIA. She was on full dose ASA 324 for apx 10 yrs per patient. During hospital stay, she developed acute abdominal pain and had episodes of GI bleed and was found to have acute colitis. She is s/p colonoscopy on 03/18/19 which showed ischemic colitis on transverse colon, diverticulosis and internal hemorroids. Vital Signs Period Temp Pulse Resp BP Sys/Valenzuela Pulse Ox Last 24 Hr 97.8 F-98.7 F 66-83 20-20 119-159/51-84 99 GENERAL: The patient is awake, alert, and fully oriented, in no acute distress. HEAD: Normal with no signs of trauma. EYES: PERRL, extraocular movements intact, sclera anicteric, conjunctiva clear. No ptosis. ENT: Ears normal, nares patent, oropharynx clear without exudates, moist mucous membranes. NECK: Trachea midline, full range of motion, supple. LUNGS: Breath sounds equal, clear to auscultation bilaterally HEART: Regular rate and rhythm, S1, S2 without murmur, rub or gallop. ABDOMEN: Soft, mild tendnerness on deep palpation, nondistended, normoactive bowel sounds, no guarding, no rebound, no hepatosplenomegaly, no masses. EXTREMITIES: no edema. NEUROLOGICAL: Normal speech, gait not observed. PSYCH: Normal mood, normal affect. SKIN: Warm, dry, normal turgor, no rashes or lesions noted Laboratory Results - last 24 h 03/19/19 03/19/19 03/19/19 12:37 14:50 14:50 WBC 7.6 RBC 4.14 Hgb 11.5 Hct 34.2 MCV 82.5 MCH 27.9 MCHC 33.8 RDW 13.9 Plt Count 207 MPV 8.3 Absolute Neuts (auto) 5.1 Neutrophils % 67.1 Lymphocytes % 21.2 D Monocytes % 9.9 Eosinophils % 1.4 D Basophils % 0.4 D Nucleated RBC % 0 Sodium 138 Potassium 2.9 L* Chloride 103 Carbon Dioxide 30 Anion Gap 5 L BUN 7.8 Creatinine 0.7 Est GFR (CKD-EPI)AfAm 94.84 Est GFR (CKD-EPI)NonAf 81.83 POC Glucometer 105 Random Glucose 130 H Calcium 8.5 Magnesium 1.8 Total Bilirubin 0.3 AST 15 ALT 25 Alkaline Phosphatase 64 Total Protein 5.4 L Albumin 2.7 L 03/19/19 03/19/19 03/19/19 16:54 21:17 21:30 WBC RBC Hgb Hct MCV MCH MCHC RDW Plt Count MPV Absolute Neuts (auto) Neutrophils % Lymphocytes % Monocytes % Eosinophils % Basophils % Nucleated RBC % Sodium Potassium 3.1 L Chloride Carbon Dioxide Anion Gap BUN Creatinine Est GFR (CKD-EPI)AfAm Est GFR (CKD-EPI)NonAf POC Glucometer 106 124 Random Glucose Calcium Magnesium Total Bilirubin AST ALT Alkaline Phosphatase Total Protein Albumin 03/20/19 03/20/19 03/20/19 06:11 06:47 06:47 WBC 6.5 RBC 4.01 Hgb 11.2 Hct 33.2 MCV 82.8 MCH 28.0 MCHC 33.8 RDW 14.4 Plt Count 206 MPV 8.6 Absolute Neuts (auto) 4.0 Neutrophils % 62.6 Lymphocytes % 23.8 Monocytes % 11.1 H Eosinophils % 1.8 Basophils % 0.7 Nucleated RBC % 0 Sodium 141 Potassium 4.1 Chloride 108 H Carbon Dioxide 29 Anion Gap 4 L BUN 6.6 L Creatinine 0.7 Est GFR (CKD-EPI)AfAm 94.84 Est GFR (CKD-EPI)NonAf 81.83 POC Glucometer 93 Random Glucose 90 Calcium 8.5 Magnesium 1.9 Total Bilirubin 0.3 AST 16 ALT 24 Alkaline Phosphatase 56 Total Protein 4.6 L Albumin 2.5 L Active Medications Generic Name Dose Route Start Last Admin Trade Name Freq PRN Reason Stop Dose Admin Acetaminophen 1,000 mg 03/17/19 08:03 03/17/19 15:02 Ofirmev Injection - IVPB 1,000 mg Q6H PRN Administration PAIN LEVEL 1-5 Ceftriaxone Sodium 1 gm/ 50 mls @ 200 mls/hr 03/17/19 10:00 03/20/19 09:14 Dextrose IVPB 200 mls/hr DAILY CHRIS Administration Protocol Metronidazole 500 mg in 100 mls @ 100 mls/hr 03/17/19 10:00 03/20/19 10:00 Flagyl 500mg Premixed Ivpb - IVPB 100 mls/hr Q8H-IV CHRIS Administration Insulin Aspart 1 vial 03/17/19 11:00 03/20/19 06:12 Novolog Vial Sliding Scale - SQ Not Given ACHS CHRIS Protocol Levothyroxine Sodium 25 mcg 03/18/19 07:00 03/20/19 06:12 Synthroid - PO 25 mcg DAILY@0700 CHRIS Administration Metoclopramide HCl 10 mg 03/17/19 14:50 Reglan Injection - IVPUSH Q6H PRN NAUSEA AND/OR VOMITING Ondansetron HCl 4 mg 03/17/19 14:50 03/17/19 15:16 Zofran Injection IVPUSH 4 mg Q8H PRN Administration NAUSEA Pantoprazole Sodium 40 mg 03/19/19 13:45 03/20/19 09:14 Protonix - PO 40 mg DAILY CHRIS Administration ASSESSMENT/PLAN: Problem List - Problems (1) Rectal bleed Assessment/Plan: resolved developed acute gi bleed during hospital stay, and found to have acute colitis colonoscopy 03/18: diverticulosis, ischemic colitis and internal hemorroids on iv ceftriaxone and flagyl tolerating soft diet on protonix 40mg daily Code(s): K62.5 - HEMORRHAGE OF ANUS AND RECTUM (2) TIA (transient ischemic attack) Assessment/Plan: presents to the the ED with concerning symptoms of TIA per patient had a previous TIA and put on full dose aspirin x [address] negative during hospital stay developed a GI bleed and ASA stopped seen by neurology, notes reviewed followed by cardiology and GI Code(s): G45.9 - TRANSIENT CEREBRAL ISCHEMIC ATTACK, UNSPECIFIED (3) Headache Assessment/Plan: head ct negative Code(s): R51 - HEADACHE (4) Hyperlipidemia Assessment/Plan: lipid panel within normal findings continue home statin Code(s): E78.5 - HYPERLIPIDEMIA, UNSPECIFIED (5) Diabetes Assessment/Plan: on metformin 750mg being held. on novolog monitor bgms hmga1c 6.3 Code(s): E11.9 - TYPE 2 DIABETES MELLITUS WITHOUT COMPLICATIONS (6) Hypertension Assessment/Plan: continue home meds once cleared by cardiology/gi monitor bp q4 Code(s): I10 - ESSENTIAL (PRIMARY) HYPERTENSION Visit type - Emergency Visit Emergency Visit: Yes ED Registration Date: 03/16/19 Care time: The patient presented to the Emergency Department on the above date and was hospitalized for further evaluation of their emergent condition. - New Patient This patient is new to me today: No - Critical Care Critical Care patient: No - Discharge Referral Referred to [facility] Med P.C.: No
--- NOTE | 2019-03-20 12:52 | PN.GI ---
GI Progress Note Subjective: Sitting up eating lunch Abdominal pain improved. "now an ache" + loose BM yesterday that has since resolved Mesenteric vessels patent - Objective Vital Signs: Vital Signs Temperature 98.7 F 03/20/19 10:00 Pulse Rate 89 03/20/19 10:00 Respiratory Rate 20 03/20/19 10:00 Blood Pressure 150/79 03/20/19 10:00 O2 Sat by Pulse Oximetry (%) 99 03/20/19 09:00 Constitutional: Calm Eyes: No: Sclera Icterus Cardiovascular: Yes: Regular Rate and Rhythm Respiratory: Yes: CTA Bilaterally Gastrointestinal Inspection: No: Scars ...Auscultate: Yes: Normoactive Bowel Sounds ...Palpate: Yes: Soft. No: Tenderness ...Percussion: No: Tympanitic Edema: No (No LE edema) Labs: CBC, BMP 03/20/19 06:47 03/20/19 06:47 INR, PTT INR 0.99 (0.83-1.09) 03/15/19 20:55 Hepatic Panel Total Bilirubin 0.3 mg/dL (0.2-1) 03/20/19 06:47 AST 16 U/L (15-37) 03/20/19 06:47 ALT 24 U/L (13-61) 03/20/19 06:47 Alkaline Phosphatase 56 U/L (45-117) 03/20/19 06:47 Albumin 2.5 g/dl (3.4-5.0) L 03/20/19 06:47 Problem List - Problems (1) Ischemic colitis Assessment/Plan: Suspected ischemic colitis from hepatic flexure to the sigmoid colon Clinically improved with normalization of WBC Abx for total 1 week Advance to low fiber diet Code(s): K55.9 - VASCULAR DISORDER OF INTESTINE, UNSPECIFIED
[2019-03-21] MEDS: INSULIN SLIDING SCALE (NOVOLOG) 1 VIAL SQ SCH ×3 (06:09→16:42)
[2019-03-21] MEDS: LEVOTHYROXINE NA 25 MCG TABLET (FP) PO SCH (06:10)
[2019-03-21] MEDS ORDERED: PT OWN MED DRAWER 7, Y5N ONE ×2 (06:45→09:57)
[2019-03-21 07:50] LABS: BASO % 0.8 % (0-2.0); EOS % 2.1 % (0-4.5); HEMATOCRIT 32.5 % (32.4-45.2); LYMPH % 28.4 % (8-40); MCH 27.6 pg (25.7-33.7); MCHC 33.8 g/dl (32.0-36.0); MEAN CELL VOLUME 81.6 fl (80-96); MEAN PLT VOLUME 7.9 fl (7.5-11.1); MONO % 13.1 % (3.8-10.2); NEUT % 55.6 % (42.8-82.8); PLATELET COUNT 213 K/MM3 (134-434); RBC 3.99 M/mm3 (3.60-5.2); RDW 13.8 % (11.6-15.6); WHITE BLOOD COUNT 5.3 K/mm3 (4.0-10.0)
[2019-03-21 08:36] LABS: ALBUMIN 2.4 g/dl (3.4-5.0); BILIRUBIN,TOTAL 0.3 mg/dL (0.2-1); BLOOD UREA NITROGEN 7.9 mg/dL (7-18); CALCIUM 8.4 mg/dL (8.5-10.1); CREATININE 0.6 mg/dL (0.55-1.3); POTASSIUM 3.6 mmol/L (3.5-5.1); TOT PROT 4.7 g/dl (6.4-8.2)
[2019-03-21] MEDS ORDERED: DEXTROSE 5%-WATER - 50 ML IVPB ONE (09:57)
[2019-03-21] MEDS ORDERED: cefTRIAXone SODIUM 1 GM VIAL ONE (09:57)
[2019-03-21] MEDS: PANTOPRAZOLE 40 MG TABLET (FP) PO SCH (10:02)
[2019-03-21] MEDS: CEFTRIAXONE 1 GM in DEXTROSE 5%-WATER - 50 ML IVPB SCH (11:16)
--- NOTE | 2019-03-21 12:12 | PN ---
Progress Note, Physician Chief Complaint: no cp or sob c/o LE edema - Current Medication List Current Medications: Active Medications Acetaminophen (Ofirmev Injection -) 1,000 mg IVPB Q6H PRN PRN Reason: PAIN LEVEL 1-5 Last Admin: 03/17/19 15:02 Dose: 1,000 mg Ceftriaxone Sodium 1 gm/ (Dextrose) 50 mls @ 200 mls/hr IVPB DAILY [facility]; Protocol Last Admin: 03/21/19 11:16 Dose: 200 mls/hr Metronidazole (Flagyl 500mg Premixed Ivpb -) 500 mg in 100 mls @ 100 mls/hr IVPB Q8H-IV CHRIS Last Admin: 03/21/19 10:07 Dose: 100 mls/hr Insulin Aspart (Novolog Vial Sliding Scale -) 1 vial SQ ACHS [facility]; Protocol Last Admin: 03/21/19 06:09 Dose: Not Given Levothyroxine Sodium (Synthroid -) 25 mcg PO DAILY@0700 [facility] Last Admin: 03/21/19 06:10 Dose: 25 mcg Metoclopramide HCl (Reglan Injection -) 10 mg IVPUSH Q6H PRN PRN Reason: NAUSEA AND/OR VOMITING Ondansetron HCl (Zofran Injection) 4 mg IVPUSH Q8H PRN PRN Reason: NAUSEA Last Admin: 03/17/19 15:16 Dose: 4 mg Pantoprazole Sodium (Protonix -) 40 mg PO DAILY [facility] Last Admin: 03/21/19 10:02 Dose: 40 mg - Objective Vital Signs: Vital Signs Temperature 98.1 F 03/21/19 06:06 Pulse Rate 68 03/21/19 06:06 Respiratory Rate 20 03/21/19 06:06 Blood Pressure 118/59 L 03/21/19 06:06 O2 Sat by Pulse Oximetry (%) 99 03/20/19 09:00 Constitutional: Yes: Calm Cardiovascular: Yes: Regular Rate and Rhythm Respiratory: Yes: CTA Bilaterally Gastrointestinal: Yes: Soft Edema: Yes Edema: LLE: 1+, RLE: 1+ Neurological: Yes: Alert, Oriented Labs: CBC, BMP 03/21/19 07:15 03/21/19 07:15 INR, PTT INR 0.99 (0.83-1.09) 03/15/19 20:55 Assessment/Plan IMP: TIA Acute GI bleed (patient on chronic full dose ASA)- secondary to colitis HTN DM REC: 1. GI evaluation now s/p Colonoscopy- further recs as per GI. 2. Hold ASA and BP meds in setting of acute GI Bleed, to resume when deemed safe from GI standpoint 3. Echo and carotid US unrevealing 4. Would benefit from skilled nursing outpt holter/ extended outpt rhythm monitor to r /o occult AF 5. Close outpt f/u Neuro and Cardiology recommended. 6. LE venous duplex, now w/ LE edema after prolonged hospitalization.
[2019-03-21 12:22] VITALS: TEMP 98.4
--- NOTE | 2019-03-21 14:41 | DS ---
Physical Exam: SUBJECTIVE: Patient seen and examined at the bedside. wants to go home. she agrees to outpatient follow up with GI and her PCP. Also agrees to visiting nurse to monitor her at home post hospital. OBJECTIVE: Patient is an 78 year old female with a significant past medical history of hypertension, hyperlipidemia, hypothyroidism and diabetes. Patient presented to the ED after she experienced an acute onset of difficulty speaking, hypertension and headache. patient followed by neurologist during hospital stay for workup of TIA. She was on full dose ASA 324 for apx 10 yrs per patient. During hospital stay, she developed acute abdominal pain and had episodes of GI bleed and was found to have acute colitis. She is s/p colonoscopy on 03/18/19 which showed ischemic colitis on transverse colon, diverticulosis and internal hemorroids. During hospital stay, was treated with IV antibiotics of ceftriaxone and flagyl and will be discharged home on Ceftin BID and Flagyl PO TID to complete a 1 week full course. She denies any further abdominal pain or discomfort. She is tolerating her meals and denies any nausea/vomiting or blood per rectum. Her home aspirin of 324mg has been held during her stay and ASA 81mg to be restarted as an outpatient. Patient to see her PCP to follow up on longterm need of daily ASA 81mg. Patient agrees to follow up with her PCP next week Sunday as well as GI for further workup. Vital Signs Period Temp Pulse Resp BP Sys/Valenzuela Pulse Ox Last 24 Hr 98.1 F-98.4 F 68-82 20-20 118-153/57-67 PHYSICAL EXAM GENERAL: The patient is awake, alert, and fully oriented, in no acute distress. HEAD: Normal with no signs of trauma. EYES: PERRL, extraocular movements intact, sclera anicteric, conjunctiva clear. No ptosis. ENT: Ears normal, nares patent, oropharynx clear without exudates, moist mucous membranes. NECK: Trachea midline, full range of motion, supple. LUNGS: Breath sounds equal, clear to auscultation bilaterally HEART: Regular rate and rhythm, S1, S2 without murmur, rub or gallop. ABDOMEN: Soft, non tender, nondistended, normoactive bowel sounds, no guarding, no rebound, no hepatosplenomegaly, no masses. EXTREMITIES: no edema. NEUROLOGICAL: Normal speech, gait not observed. PSYCH: Normal mood, normal affect. SKIN: Warm, dry, normal turgor, no rashes or lesions noted LABS Laboratory Results - last 24 hr 03/20/19 03/20/19 03/21/19 16:29 21:57 06:08 WBC RBC Hgb Hct MCV MCH MCHC RDW Plt Count MPV Absolute Neuts (auto) Neutrophils % Lymphocytes % Monocytes % Eosinophils % Basophils % Nucleated RBC % Sodium Potassium Chloride Carbon Dioxide Anion Gap BUN Creatinine Est GFR (CKD-EPI)AfAm Est GFR (CKD-EPI)NonAf POC Glucometer 142 109 95 Random Glucose Calcium Magnesium Total Bilirubin AST ALT Alkaline Phosphatase Total Protein Albumin 03/21/19 03/21/19 03/21/19 07:15 07:15 11:42 WBC 5.3 RBC 3.99 Hgb 11.0 Hct 32.5 MCV 81.6 MCH 27.6 MCHC 33.8 RDW 13.8 Plt Count 213 MPV 7.9 Absolute Neuts (auto) 3.0 Neutrophils % 55.6 Lymphocytes % 28.4 Monocytes % 13.1 H Eosinophils % 2.1 Basophils % 0.8 Nucleated RBC % 0 Sodium 142 Potassium 3.6 Chloride 109 H Carbon Dioxide 28 Anion Gap 5 L BUN 7.9 Creatinine 0.6 Est GFR (CKD-EPI)AfAm 99.77 Est GFR (CKD-EPI)NonAf 86.09 POC Glucometer 164 Random Glucose 93 Calcium 8.4 L Magnesium 2.0 Total Bilirubin 0.3 AST 27 ALT 29 Alkaline Phosphatase 56 Total Protein 4.7 L Albumin 2.4 L HOSPITAL COURSE: Date of Admission:03/16/19 Date of Discharge: 03/21/19 Minutes to complete discharge: 60 Discharge Summary Problems reviewed: Yes Reason For Visit: TIA Current Active Problems Diabetes (Acute) Headache (Acute) Hyperlipidemia (Acute) Hypertension (Acute) Ischemic colitis (Acute) Performance measure status (Acute) Rectal bleed (Acute) TIA (transient ischemic attack) (Acute) Condition: Stable - Instructions Diet, Activity, Other Instructions: Mrs Condon: You were admitted for rule out of a TIA (transient ischemic attack) and was found to have ischemic colitis. It is important that you follow up with Dr. Flowers for post hospital follow up. During your stay you were evaluated by cardiology, neurology, impersonator character and hospital service. Here are our recommendations Ischemic colitis. What is ischemic colitis? Ischemic colitis occurs when blood flow to the large intestine is reduced. It can cause pain or bleeding. You had a colonoscopy during your hospital stay. Please follow up with Dr. Flowers for follow up and results of the colonoscopy. Medications: START ON 03/22/2019 Continue the antibiotics as follows: Ceftin 500mg TWICE per day at 8am and 8pm Flagyl 500mg THREE times per day at 8am, 2pm and 8pm both antibiotics will complete in 3 more days and you can take with food. Further Take Protonix 40mg daily You can restart your home medications EXCEPT for full dose aspirin. You can take Aspirin 81mg but you will need to follow up with your PCP next week to discuss if you still need this medication going forward. Thank you for allowing us to care for you. I am available for questions. Alaina Morris [facility] [phone] Disposition: VNS/HOME HEALTH CARE - Home Medications Comprehensive Discharge Medication List: Ambulatory Orders Atorvastatin Ca [Lipitor] 20 mg PO HS 08/29/16 Levothyroxine [Synthroid -] 25 mcg PO DAILY 03/14/19 Lisinopril/Hydrochlorothiazide [Lisinopril-Hctz 20-25 mg Tab] 1 each PO DAILY metFORMIN HCL [Metformin HCl ER] 750 mg PO DAILY 03/14/19 Cefuroxime Axetil [Ceftin -] 500 mg PO Q12H #6 tablet 03/21/19 Levothyroxine [Synthroid -] 25 mcg PO DAILY@0700 tablet 03/21/19 Metoclopramide HCl Injection [Reglan Injection -] 10 mg IVPUSH Q6H PRN vial Pantoprazole Sodium [Protonix -] 40 mg PO DAILY #90 tablet.ec 03/21/19 metroNIDAZOLE [Flagyl -] 500 mg PO DAILY #10 tablet 03/21/19 Problem List - Problems (1) Rectal bleed Assessment/Plan: resolved developed acute gi bleed during hospital stay, and found to have acute colitis colonoscopy 03/18: diverticulosis, ischemic colitis and internal hemorroids on iv ceftriaxone and flagyl and converted to ceftin 500mg bid x 3 days and flagyl TID x 3 days. on low fiber on protonix 40mg daily Code(s): K62.5 - HEMORRHAGE OF ANUS AND RECTUM (2) TIA (transient ischemic attack) Assessment/Plan: presents to the the ED with concerning symptoms of TIA per patient had a previous TIA and put on full dose aspirin 324 x [address] negative during hospital stay developed a GI bleed and ASA stopped seen by neurology, notes reviewed followed by cardiology and GI per GI can start ASA 81mg daily with outpatient follow up with PCP to assess ongoing need for aspirin use Code(s): G45.9 - TRANSIENT CEREBRAL ISCHEMIC ATTACK, UNSPECIFIED (3) Headache Assessment/Plan: head ct negative headaches resolved Code(s): R51 - HEADACHE (4) Hyperlipidemia Assessment/Plan: lipid panel within normal findings continue home statin Code(s): E78.5 - HYPERLIPIDEMIA, UNSPECIFIED (5) Diabetes Assessment/Plan: continue metformin Code(s): E11.9 - TYPE 2 DIABETES MELLITUS WITHOUT COMPLICATIONS (6) Hypertension Assessment/Plan: restart home medications 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 Critical Care patient: No - Discharge Referral Referred to [facility] No
[2019-03-21] MEDS ORDERED: LISINOPRIL 20 MG TABLET (FP) PO ONE (14:45)
[2019-03-21] MEDS ORDERED: HYDROCHLOROTHIAZIDE 25 MG TABLET (FP) PO ONE (14:45)
[2019-03-21 15:10] VITALS: BP 145/75; PULSE 79
[2019-03-21] MEDS ORDERED: metroNIDAZOLE 250 MG TABLET PO ONE (17:00)
== END 2019-03-21 17:07 | disposition home health service (06) | DRG 69 ==
LOC: JER 13:49 → JERBED 15:24 → J4W 18:49 → JICU 03-15 22:39 → OBSVTOIN 03-16 15:26 → J8W 03-16 19:50
PROVIDERS: ADMIT Internal Medicine; ATTEND Nurse Practitioner Family
PROC: 0DBN8ZX Excision of Sigmoid Colon, Via Natural or Artificial Opening Endoscopic, Diagnostic (ICD-10-PCS; 2019-03-18)
PROC: 0DBL8ZX Excision of Transverse Colon, Via Natural or Artificial Opening Endoscopic, Diagnostic (ICD-10-PCS; principal; 2019-03-18 11:30)
DX: G45.9 Transient cerebral ischemic attack, unspecified (principal); K92.2 Gastrointestinal hemorrhage, unspecified; K55.9 Vascular disorder of intestine, unspecified; I10 Essential (primary) hypertension; E78.5 Hyperlipidemia, unspecified; E11.9 Type 2 diabetes mellitus without complications; E03.9 Hypothyroidism, unspecified; Z79.84 Long term (current) use of oral hypoglycemic drugs; I45.10 Unspecified right bundle-branch block; R51 Headache; K57.90 Diverticulosis of intestine, part unspecified, without perforation or abscess without bleeding; K64.8 Other hemorrhoids
CPT/HCPCS: 36415; 70450-TC; 74018-TC-FY; 74019-TC-FY; 74174-TC; 80053; 80061; 81003; 82465; 82550; 82962; 83036; 83718; 83721; 83735; 84100; 84132; 84436; 84443; 84478; 84484; 85025; 85027; 85610; 85730; 86850; 86900; 86901; 86922; 88305-TC; 93005; 93010; 93306-TC; 93880-TC; 93970-TC; 97116-GP; 97161-GP; 99285-25; G0378; J0131; J7030

== ENCOUNTER 2019-09-16 09:53 | Day surgery (SDC) | payer OTHER ==
[2019-09-11 16:21] VITALS: BMI 32.4
[2019-09-16 11:29] VITALS: TEMP 98.3
[2019-09-16 12:15] VITALS: BP 108/60; PULSE 60
== END 2019-09-16 12:30 | disposition home or self-care (01) ==
LOC: JASU-ENDO 09:53
PROVIDERS: ATTEND Internal Medicine Gastroenterology
PROC: 0DBL8ZX Excision of Transverse Colon, Via Natural or Artificial Opening Endoscopic, Diagnostic (ICD-10-PCS; 2019-09-16)
PROC: 0DBM8ZX Excision of Descending Colon, Via Natural or Artificial Opening Endoscopic, Diagnostic (ICD-10-PCS; principal; 2019-09-16 11:00)
DX: Z12.11 Encounter for screening for malignant neoplasm of colon (principal); Z86.010 Personal history of colon polyps; K51.90 Ulcerative colitis, unspecified, without complications; K57.30 Diverticulosis of large intestine without perforation or abscess without bleeding; E11.9 Type 2 diabetes mellitus without complications; I10 Essential (primary) hypertension
CPT/HCPCS: 82962; 88305-TC

== ENCOUNTER 2024-01-30 22:21 | Emergency (ER) | payer OTHER ==
[2024-01-30 22:32] VITALS: BP 157/75; PULSE 92; RESP 18; TEMP 97.8; BMI 32.5
== END 2024-01-30 23:13 | disposition home or self-care (01) ==
LOC: FER 22:21
DX: S00.83XA Contusion of other part of head, initial encounter (principal); W01.198A Fall on same level from slipping, tripping and stumbling with subsequent striking against other object, initial encounter
CPT/HCPCS: 70450-TC; 99284-25